=== PATIENT | female | born 1995 | race Hispanic/Latino ===

== ENCOUNTER 2018-10-27 10:34 | Emergency (ER) | payer OTHER ==
[2018-10-27] MEDS ORDERED: NA CHLORIDE 0.9% 1,000 ML ONE ×2 (11:13→12:30)
[2018-10-27] MEDS ORDERED: ACETAMINOPHEN 325 MG TABLET ONE (11:13)
[2018-10-27 11:45] LABS: Absolute Lymphocytes (CBC) 0.7 K/uL (0.7-4.9); Basophils % 0.1 % (0-1.3); Hematocrit 35.9 % (36.0-45.0); Lymphocytes % 5.4 % (15.3-44.8); MPV 7.1 fL (7.6-11.3); RBC Red Blood Cell Count 3.97 M/uL (3.86-4.86)
[2018-10-27 11:57] LABS: Urine Blood 2+ (NEG); Urine Glucose NEGATIVE (NEG); Urine Protein 1+ (NEG)
[2018-10-27 11:59] LABS: BUN Blood Urea Nitrogen 7 mg/dL (7-18); Bicarbonate 27 mmol/L (21-32); Glucose Level 103 mg/dL (74-106); Potassium 3.4 mmol/L (3.5-5.1); Sodium Level 136 mmol/L (136-145)
[2018-10-27 13:29] LABS: Blood Morphology Comment NOT SEEN (NOT SEEN); Platelet Estimate INCR; Urine White Blood Cell Casts OK
--- NOTE | 2018-10-27 13:30 | RAD REPORT ---
EXAM DESCRIPTION: CT - Chest For Pe Angio - 10/27/2018 12:48 pm CLINICAL HISTORY: Chest pain COMPARISON: None. TECHNIQUE: Dynamically enhanced axial 3 mm thick images of the chest were obtained during administra tion of <100> mL Isovue 370 IV contrast. Coronal and oblique reconstruction images were generated and reviewed. Exam utilizes a protocol for optimal evaluation of pulmonary arterial tree. Maximum intensity projections 3D imaging was utilized All CT scans are performed using dose optimization technique as appropriate and may include automated exposure control or mA/KV adjustment according to patient size. FINDINGS: A pulmonary embolus is not seen. A thoracic aortic aneurysm is not noted. A pleural effusion is not seen. A pericardial effusion is not seen. Moderate left and [id number]-ov-[id number] right the diffuse ground-glass opacities IMPRESSION: Negative for a pulmonary embolism. Moderate left and nvef-tg-cclbzzov right the diffuse ground-glass opacities could indicate infection , inflammation or pulmonary edema
--- NOTE | 2018-10-27 13:30 | RAD REPORT ---
EXAM DESCRIPTION: Huy Rashid And Lat (2 Views)10/27/2018 12:25 pm CLINICAL HISTORY: Cough COMPARISON: None FINDINGS: Moderate left and gqeh-[id number] the right alveolar opacities. . The heart is normal si ze IMPRESSION: Bilateral pulmonary opacities left greater than right may represent pneumonia, inflamma tion or pulmonary edema
[2018-10-27] MEDS ORDERED: CEFTRIAXONE/SWI 1gm 1 GM/10 ML SYR ONE (13:51)
[2018-10-27] MEDS ORDERED: AZITHROMYCIN 250 MG TAB ONE (14:50)
--- NOTE | 2018-10-27 14:57 | ER ---
Nurse's Notes [facility] Name: Briana Oconnell Age: 23 yrs Sex: Female : 1995 Arrival Date: 10/27/2018 Time: 10:37 Bed 17 Private MD: Diagnosis: Lobar pneumonia, unspecified organism Presentation: 10/27 10:43 Presenting complaint: Patient states: i have a had a cough and i feel like i cant get a tw2 full breath for like 2 days, i have some congestion as well. Transition of care: patient was not received from another setting of care. Onset of symptoms was October 27, 2018. Risk Assessment: Do you want to hurt yourself or someone else? Patient reports no desire to harm self or others. Initial Sepsis Screen: Does the patient meet any 2 criteria? HR > 90 bpm. Does the patient have a suspected source of infection? No. Patient's initial sepsis screen is negative. Care prior to arrival: None. 10:43 Method Of Arrival: Ambulatory tw2 10:43 Acuity: NICOLE 3 tw2 Triage Assessment: 10:45 Headache History: The patient has had previous headaches and this one is similar to tw2 previous episodes. General: Appears in no apparent distress. Behavior is calm, cooperative, appropriate for age. Pain: Pain currently is 7 out of 10 on a pain scale. Pain began 2-3 days ago. Also complains of decreased appetite. Neuro: Level of Consciousness is awake, alert, obeys commands. 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 - Social history:: Smoking status: . - Ebola Screening: : Patient denies travel to an Ebola-affected area in the 21 days before illness onset. Screenin:45 Abuse screen: Denies threats or abuse. Nutritional screening: On. Tuberculosis tw2 screening: No symptoms or risk factors identified. Fall Risk None identified. Assessment: 11:04 Reassessment: provider at bedside at this time. tw2 11:32 General: Appears in no apparent distress. slender, Behavior is calm, cooperative, tw2 appropriate for age. Pain: Complains of pain in painful cough. Neuro: Level of Consciousness is awake, alert, obeys commands, Oriented to person, place, time, situation. Cardiovascular: Reports shortness of breath, Heart tones S1 S2 Patient's skin is warm and dry. Respiratory: Reports shortness of breath cough that is Airway is patent Respiratory effort is even, unlabored, Respiratory pattern is regular, symmetrical, Breath sounds are clear bilaterally. GI: No signs and/or symptoms were reported involving the gastrointestinal system. Abdomen is flat, Bowel sounds present X 4 quads. : No signs and/or symptoms were reported regarding the genitourinary system. Urine is dark teresita urine noted. EENT: Reports nasal congestion nasal discharge. Derm: No signs and/or symptoms reported regarding the dermatologic system. Musculoskeletal: Range of motion: intact in all extremities. 11:57 Reassessment: Dr. Patel notified of elevated DDimer of 1032. ss 12:36 Reassessment: Patient appears in no apparent distress at this time. Patient and/or ca1 family updated on plan of care and expected duration. Pain level reassessed. Patient is alert, oriented x 3, equal unlabored respirations, skin warm/dry/pink. 13:14 Reassessment: Patient appears in no apparent distress at this time. Patient and/or ca1 family updated on plan of care and expected duration. Pain level reassessed. Patient is alert, oriented x 3, equal unlabored respirations, skin warm/dry/pink. 14:15 Reassessment: Patient appears in no apparent distress at this time. Patient and/or ca1 family updated on plan of care and expected duration. Pain level reassessed. Patient is alert, oriented x 3, equal unlabored respirations, skin warm/dry/pink. 15:13 Reassessment: Patient appears in no apparent distress at this time. Patient is alert, ca1 oriented x 3, equal unlabored respirations, skin warm/dry/pink. Vital Signs: 10:44 BP 112 / 73; Pulse 128; Resp 19; Temp 100.0(O); Pulse Ox 94% on R/A; Weight 58.97 kg tw2 (R); Height 5 ft. 0 in. (152.40 cm) (R); Pain 7/10; 11:34 BP 104 / 62; Pulse 116; Resp 17; Pulse Ox 95% on R/A; tw2 11:53 Temp 100.5(O); tw2 12:35 BP 103 / 58; Pulse 109; Resp 19 S; Pulse Ox 100% on R/A; ca1 13:14 BP 99 / 62; Pulse 102; Resp 17 S; Temp 98.8(O); Pulse Ox 97% on R/A; ca1 14:15 BP 114 / 78; Pulse 103; Resp 19 S; Pulse Ox 100% on R/A; ca1 15:13 BP 106 / 72; Pulse 97; Resp 20 S; Pulse Ox 96% on R/A; ca1 10:44 Body Mass Index 25.39 (58.97 kg, 152.40 cm) tw2 ED Course: 10:37 Patient arrived in ED. as 10:40 Bed in low position. Call light in reach. Pulse ox on. NIBP on. tw2 10:43 Emely Montesinos RN is Primary Nurse. tw2 10:44 Triage completed. tw2 10:44 Arm band placed on. tw2 10:57 Kayden Patel MD is Attending Physician. gs 11:16 Radiology exam delayed due to test not completed at this time. mh1 11:20 Inserted saline lock: 22 gauge in right antecubital area, using aseptic technique. tw2 Blood collected. 11:25 EKG done, by ED staff, reviewed by Kayden Patel MD. dh3 11:31 Urine collected: clean catch specimen, teresita colored, sediment noted. dh3 11:43 Patient moved to radiology via wheelchair. mh1 11:54 Report given to AILIN Hargrove. tw2 12:18 X-ray completed. Patient tolerated procedure well. Patient moved back from radiology. mh1 12:25 XRAY Chest Pa And Lat (2 Views) In Process Unspecified. EDMS 12:46 CT completed. Patient tolerated procedure well. Patient moved back from CT. mw3 12:49 CT Chest For PE Angio In Process Unspecified. EDMS 14:02 by me, sent to lab. First set of blood cultures drawn by me. Inserted saline lock: 22 dh3 gauge in right antecubital area, using aseptic technique. Blood collected. 14:20 Second set of blood cultures drawn by me. dh3 15:15 No provider procedures requiring assistance completed. IV discontinued, intact, ca1 bleeding controlled, No redness/swelling at site. Pressure dressing applied. Administered Medications: 11:17 Drug: Tylenol 650 mg Route: PO; tw2 13:00 Follow up: Response: No adverse reaction; Temperature is decreased ca1 11:20 Drug: NS 0.9% 1000 ml Route: IV; Rate: 1 bolus; Site: right antecubital; tw2 12:20 Follow up: Response: No adverse reaction; IV Status: Completed infusion ca1 12:35 Drug: NS 0.9% 1000 ml Route: IV; Rate: 125 ml/hr; Site: right antecubital; ca1 15:14 Follow up: Response: No adverse reaction; IV Status: Order to discontinue infusion ca1 14:11 Drug: Rocephin - (cefTRIAXone) 1 grams Route: IVPB; Infused Over: 30 mins; Site: right ca1 antecubital; 14:48 Follow up: Response: No adverse reaction; IV Status: Completed infusion ca1 14:53 Drug: Zithromax 500 mg Route: PO; ca1 15:14 Follow up: Response: No adverse reaction ca1 Outcome: 14:56 Discharge ordered by . 15:15 Discharged to home ambulatory, with significant other. ca1 15:15 Condition: stable 15:15 Discharge instructions given to patient, Instructed on discharge instructions, follow up and referral plans. medication usage, Demonstrated understanding of instructions, follow-up care, medications, Prescriptions given X 3. 15:16 Patient left the ED. ca1 Signatures: Dispatcher [employer] EDMS Alexa Taylor 1 Joanie Tanner Shelby, RN RN Emely Montesinos RN RN 2 Fina Ernst [facility] Kayden Patel MD MD gs Willis, Michelle 3 Beena Cornejo RN RN ca1
--- NOTE | 2018-10-27 14:57 | EDPHYS ---
Physician Documentation [facility] Name: Briana Oconnell Age: 23 yrs Sex: Female : 1995 Arrival Date: 10/27/2018 Time: 10:37 Bed 17 Private MD: ED Physician Kayden Patel HPI: 10/27 14:48 This 23 yrs old Female presents to ER via Ambulatory with complaints of gs Painful Cough, Fever. 14:50 The patient or guardian reports cough. Onset: The symptoms/episode began/occurred 3 gs day(s) ago, and became worse. Severity of symptoms: At their worst the symptoms were severe, in the emergency department the symptoms are unchanged. Modifying factors: the symptoms are aggravated by deep breath. Associated signs and symptoms: Pertinent positives: chest pain, with breathing. The patient has not experienced similar symptoms in the past. The patient has not recently seen a physician. 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 - Social history:: Smoking status: . - Ebola Screening: : Patient denies travel to an Ebola-affected area in the 21 days before illness onset. ROS: 14:50 All other systems are negative. gs Exam: 14:50 Head/Face: Normocephalic, atraumatic. Eyes: Pupils equal round and reactive to light, gs extra-ocular motions intact. Lids and lashes normal. Conjunctiva and sclera are non-icteric and not injected. Cornea within normal limits. Periorbital areas with no swelling, redness, or edema. ENT: Nares patent. No nasal discharge, no septal abnormalities noted. Tympanic membranes are normal and external auditory canals are clear. Oropharynx with no redness, swelling, or masses, exudates, or evidence of obstruction, uvula midline. Mucous membranes moist. Neck: Trachea midline, no thyromegaly or masses palpated, and no cervical lymphadenopathy. Supple, full range of motion without nuchal rigidity, or vertebral point tenderness. No Meningismus. Chest/axilla: Normal chest wall appearance and motion. Nontender with no deformity. No lesions are appreciated. 14:50 Abdomen/GI: Soft, non-tender, with normal bowel sounds. No distension or tympany. No guarding or rebound. No evidence of tenderness throughout. Back: No spinal tenderness. No costovertebral tenderness. Full range of motion. Skin: Warm, dry with normal turgor. Normal color with no rashes, no lesions, and no evidence of cellulitis. MS/ Extremity: Pulses equal, no cyanosis. Neurovascular intact. Full, normal range of motion. Neuro: Awake and alert, GCS 15, oriented to person, place, time, and situation. Cranial nerves II-XII grossly intact. Motor strength 5/5 in all extremities. Sensory grossly intact. Cerebellar exam normal. Normal gait. 14:50 Constitutional: The patient appears alert, awake. 14:50 Cardiovascular: Rate: tachycardic, Rhythm: regular, Pulses: no pulse deficits are appreciated, Heart sounds: normal. 14:50 ECG was reviewed by the Attending Physician. 14:50 Respiratory: the patient does not display signs of respiratory distress, Respirations: normal, Breath sounds: decreased breath sounds, that are moderate, are located in both bases. Vital Signs: 10:44 BP 112 / 73; Pulse 128; Resp 19; Temp 100.0(O); Pulse Ox 94% on R/A; Weight 58.97 kg tw2 (R); Height 5 ft. 0 in. (152.40 cm) (R); Pain 7/10; 11:34 BP 104 / 62; Pulse 116; Resp 17; Pulse Ox 95% on R/A; tw2 11:53 Temp 100.5(O); tw2 12:35 BP 103 / 58; Pulse 109; Resp 19 S; Pulse Ox 100% on R/A; ca1 13:14 BP 99 / 62; Pulse 102; Resp 17 S; Temp 98.8(O); Pulse Ox 97% on R/A; ca1 14:15 BP 114 / 78; Pulse 103; Resp 19 S; Pulse Ox 100% on R/A; ca1 15:13 BP 106 / 72; Pulse 97; Resp 20 S; Pulse Ox 96% on R/A; ca1 10:44 Body Mass Index 25.39 (58.97 kg, 152.40 cm) tw2 MDM: 11:06 Patient medically screened. gs 14:50 Differential Diagnosis: Bronchitis Pneumonia Other PE. Data reviewed: vital signs, gs nurses notes. Counseling: I had a detailed discussion with the patient and/or guardian regarding: the historical points, exam findings, and any diagnostic results supporting the discharge/admit diagnosis, lab results, radiology results. Response to treatment: the patient's symptoms have markedly improved after treatment. Special discussion: discussed admission with patient exam show mild stach, nl RR, sats good no dyspnea at rest or walking. given precautions when to return pt wants to go home. 10/27 11:07 Order name: CBC with Diff; Complete Time: 13:32 gs 10/27 11:07 Order name: Basic Metabolic Panel; Complete Time: 12:06 gs 10/27 11:07 Order name: D-Dimer; Complete Time: 12:06 10/27 11:31 Order name: Urine Dipstick--Ancillary (enter results); Complete Time: 12:06 eb 10/27 11:31 Order name: Urine --Ancillary (enter results); Complete Time: 12:06 eb 10/27 13:29 Order name: CBC Smear Scan; Complete Time: 13:32 EDMS 10/27 11:07 Order name: XRAY Chest Pa And Lat (2 Views); Complete Time: 13:32 gs 10/27 12:08 Order name: CT Chest For PE Angio; Complete Time: 13:32 10/27 13:34 Order name: Procalcitonin; Complete Time: 14:44 10/27 13:34 Order name: Lactate; Complete Time: 14:44 10/27 13:34 Order name: Blood Culture* 10/27 11:07 Order name: Urine Test (obtain specimen); Complete Time: 11:31 gs 10/27 11:07 Order name: Urine Dipstick-Ancillary (obtain specimen); Complete Time: 11:31 gs 10/27 11:07 Order name: EKG - Nurse/Tech; Complete Time: 11:31 gs 10/27 11:11 Order name: EKG; Complete Time: 11:12 tw2 10/27 11:32 Order name: IV Start; Complete Time: 11:32 tw2 EC:50 Rate is 123 beats/min. Rhythm is regular. ME interval is normal. QRS interval is gs prolonged. T waves are Normal. No ST changes noted. Clinical impression: Sinus tachycardia. Interpreted by me. Administered Medications: 11:17 Drug: Tylenol 650 mg Route: PO; tw2 13:00 Follow up: Response: No adverse reaction; Temperature is decreased ca1 11:20 Drug: NS 0.9% 1000 ml Route: IV; Rate: 1 bolus; Site: right antecubital; tw2 12:20 Follow up: Response: No adverse reaction; IV Status: Completed infusion ca1 12:35 Drug: NS 0.9% 1000 ml Route: IV; Rate: 125 ml/hr; Site: right antecubital; ca1 15:14 Follow up: Response: No adverse reaction; IV Status: Order to discontinue infusion ca1 14:11 Drug: Rocephin - (cefTRIAXone) 1 grams Route: IVPB; Infused Over: 30 mins; Site: right ca1 antecubital; 14:48 Follow up: Response: No adverse reaction; IV Status: Completed infusion ca1 14:53 Drug: Zithromax 500 mg Route: PO; ca1 15:14 Follow up: Response: No adverse reaction ca1 Disposition: 10/27/18 14:56 Discharged to Home. Impression: Lobar pneumonia, unspecified organism. - Condition is Stable. - Discharge Instructions: Community-Acquired Pneumonia, Adult. - Prescriptions for Ceftin 500 mg Oral Tablet - take 1 tablet by ORAL route every 12 hours for 7 days; 14 tablet. Zithromax Z- Crow 250 mg Oral Tablet - take 1 tablet by ORAL route as directed for 5 days Day 1 - take two (2) tablets one time. Day 2, 3, 4 , 5 take one (1) tablet once daily.; 6 tablet. Albuterol Sulfate 90 mcg/actuation - inhale 1-2 puff by INHALATION route every 4-6 hours; 1 Inhaler. - Medication Reconciliation Form, Thank You Letter, Antibiotic Education, Prescription Opioid Use, Work release form form. - Follow up: Private Physician; When: 2 - 3 days; Reason: Re-evaluation by your physician. Signatures: Dispatcher [employer] Emely Poe RN RN tw2 Kayden Patel MD MD gs Acob, AILIN Hargrove RN ca1 Corrections: (The following items were deleted from the chart) 15:16 14:56 10/27/2018 14:56 Discharged to Home. Impression: Lobar pneumonia, unspecified ca1 organism. Condition is Stable. Forms are Medication Reconciliation Form, Thank You Letter, Antibiotic Education, Prescription Opioid Use. Follow up: Private Physician; When: 2 - 3 days; Reason: Re-evaluation by your physician. gs
[2018-10-27 15:31] VITALS: TEMP 98.8
[2018-10-27 15:34] VITALS: BP 106/72; O2SAT 96
--- NOTE | 2018-10-27 16:56 | EKG ---
Test Date: 2018-10-27 Test Time: 11:22:43 Sliver Lap Tender: RUBY MEASUREMENT RESULTS: Intervals: Rate: 123 NC: 166 QRSD: 104 QT: 298 QTc: 426 Nuevo: P: 56 NC: 166 QRS: 66 T: 45 INTERPRETIVE STATEMENTS: Sinus tachycardia Possible Left atrial enlargement Incomplete right bundle branch block Borderline ECG No previous ECG available for comparison Electronically Signed On 10-27-18 16:55:50 CDT by Khari José
== END 2018-10-27 15:16 | disposition home or self-care (01) ==
LOC: ER 10:34
DX: J18.1 Lobar pneumonia, unspecified organism (principal)
CPT/HCPCS: 96365; 96361; 93005; 87040 ×2; 85025; 80048; 36415; 81025; 85379; 83605; 81003; 84145; 71275; 71046; 99285; Q9967; J0696; J7030 ×2

== ENCOUNTER 2019-12-29 11:02 | Emergency (ER) | payer OTHER ==
--- OUTSIDE RECORDS SUMMARY | 2019-12-29 11:05 | XMS REPORT | Continuity of Care Document ---
:1995 Author Organization [facility] t Address [facility] [place] [address] Care Team Providers Name Role Phone Elissa JASMINE Attending Clinician Lab, Fam Pob I Attending Clinician Unavailable Problems This patient has no known problems. Allergies, Adverse Reactions, Alerts This patient has no known allergies or adverse reactions. Medications This patient has no known medications. Procedures This patient has no known procedures. Encounters Start End Encounter Admission Attending Care Care Encounter Source Date/Time Date/Time Type Type Clinicians Facility Department ID 2019-09-26 2019-09-26 Telephone Elissa [facility] [id number] 00:00:00 00:00:00 [facility] [id number] [place] [id number] [facility] [phone] [address] 2019-09-25 2019-09-25 Laboratory Lab, Adc [facility] [id number] 13:01:09 13:21:09 Only Fam Pob I [facility] [id number] [place] [id number] [facility] [phone] [address]al [phone] Results This patient has no known results.
[2019-12-29 13:34] LABS: Absolute Lymphocytes (CBC) 1.4 K/uL (0.7-4.9); Basophils % 0.5 % (0-1.3); Hematocrit 37.3 % (36.0-45.0); Lymphocytes % 15.6 % (15.3-44.8); MPV 8.1 fL (7.6-11.3); RBC Red Blood Cell Count 4.04 M/uL (3.86-4.86)
[2019-12-29] MEDS ORDERED: MAGNES/ALUMIN/SIMET 30ML UCUP ONE (13:43)
[2019-12-29] MEDS ORDERED: LIDOCAINE VISCOUS 2% SOLN 15 ML UDC ONE (13:43)
[2019-12-29] MEDS ORDERED: NA CHLORIDE 0.9% 1,000 ML ONE (13:43)
[2019-12-29] MEDS ORDERED: PANTOPRAZOLE 40 MG INJ ONE (13:43)
[2019-12-29] MEDS ORDERED: ONDANSETRON 4 MG/2 ML VIAL ONE (13:43)
[2019-12-29 13:50] LABS: Albumin 4.1 g/dL (3.4-5.0); Bilirubin Direct 0.2 mg/dL (0-0.2); Potassium 3.4 mmol/L (3.5-5.1); Protein, Total 7.6 g/dL (6.4-8.2)
--- NOTE | 2019-12-29 14:06 | RAD REPORT ---
EXAM DESCRIPTION: US - Abdomen Exam Limited - 12/29/2019 1:05 pm CLINICAL HISTORY: Abd pain;Epigastric pain COMPARISON: CT ABD PELVIS W CONTRAST dated 05/02/2012 FINDINGS: Several small sub centimeter mobile gallstones are seen in the lumen of the gallbladder. N o wall thickening or pericholecystic fluid. No common duct stone or biliary tree dilatation identified. IMPRESSION: Several small sub centimeter mobile gallstones seen. No other gallbladder or biliary heide e finding.
[2019-12-29] MEDS ORDERED: DICYCLOMINE HCL 20 MG/2 ML AMP IM ONE (14:33)
--- NOTE | 2019-12-29 15:00 | ER ---
Nurse's Notes [facility] Name: Briana Oconnell Age: 24 yrs Sex: Female : 1995 Arrival Date: 12/29/2019 Time: 11:06 Bed 26 Private MD: Hailey Harvey H Diagnosis: Cholelithiasis;Epigastric pain Presentation: 12/28 11:07 Chief complaint: Patient states: epigastric pain that radiates to the back, n/v x [address] sv [address] Cross in the past and has H.pylori but she has an US for her gallbladder next week but the pain has increased. Coronavirus screen: Client denies travel out of the [place] in the last 14 days. At this time, the client does not indicate any symptoms associated with coronavirus-19. Ebola Screen: No symptoms or risks identified at this time. Risk Assessment: Do you want to hurt yourself or someone else? Patient reports no desire to harm self or others. Onset of symptoms was December 26, 2019. 11:07 Method Of Arrival: Ambulatory sv 11:07 Acuity: NICOLE 3 sv 11:09 Initial Sepsis Screen: Does the patient meet any 2 criteria? No. Patient's initial sv sepsis screen is negative. Does the patient have a suspected source of infection? No. Patient's initial sepsis screen is negative. Triage Assessment: 11:07 General: Appears in no apparent distress. uncomfortable, Behavior is calm, cooperative, sv appropriate for age. Pain: Complains of pain in epigastric area Pain radiates to back. Neuro: Level of Consciousness is awake, alert, obeys commands, Gait is steady. Respiratory: Respiratory effort is even, unlabored, Respiratory pattern is regular, symmetrical. GI: Reports upper abdominal pain, epigastric pain, vomiting. Historical: - Allergies: 11:09 No Known Allergies; sv - PMHx: 11:09 H. pylori; sv - PSHx: 11:09 ; sv - Immunization history:: Flu vaccine is not up to date. - Social history:: Smoking status: Patient denies any tobacco usage or history of. Screenin:33 Abuse screen: Denies threats or abuse. Denies injuries from another. Nutritional hb screening: No deficits noted. Tuberculosis screening: No symptoms or risk factors identified. Fall Risk None identified. Assessment: 13:30 General: Appears in no apparent distress. Behavior is calm, cooperative. Pain: Pain hb currently is 6 out of 10 on a pain scale. Neuro: Level of Consciousness is awake, alert, obeys commands, Oriented to person, place, time, situation. Cardiovascular: Capillary refill < 3 seconds Patient's skin is warm and dry. Respiratory: Airway is patent Respiratory effort is even, unlabored, Respiratory pattern is regular, symmetrical. GI: Reports upper abdominal pain. : No signs and/or symptoms were reported regarding the genitourinary system. EENT: No signs and/or symptoms were reported regarding the EENT system. Derm: Skin is pink, warm \T\ dry. Musculoskeletal: No signs and/or symptoms reported regarding the musculoskeletal system. 14:26 Reassessment: Patient appears in no apparent distress at this time. Patient and/or hb family updated on plan of care and expected duration. Pain level reassessed. Patient is alert, oriented x 3, equal unlabored respirations, skin warm/dry/pink. 15:16 Reassessment: Patient appears in no apparent distress at this time. Patient and/or hb family updated on plan of care and expected duration. Pain level reassessed. Patient is alert, oriented x 3, equal unlabored respirations, skin warm/dry/pink. Patient states feeling better. Patient states symptoms have improved. Vital Signs: 11:09 BP 118 / 72; Pulse 83; Resp 16; Temp 98.3; Pulse Ox 99% ; Weight 63.5 kg; Height 5 ft. sv 0 in. (152.40 cm); Pain 6/10; 15:00 BP 122 / 74; Pulse 80; Resp 16; Pulse Ox 99% on R/A; hb 11:09 Body Mass Index 27.34 (63.50 kg, 152.40 cm) sv ED Course: 11:06 Patient arrived in ED. mr 11:06 Hailey Harvey DO is Private Physician. mr 11:07 Arm band placed on. sv 11:08 Triage completed. sv 13:08 Molly Nunez, AILIN is Primary Nurse. hb 13:11 Bernardo Chavira PA is PHCP. cp 13:11 Stanley Naidu MD is Attending Physician. cp 13:25 Initial lab(s) drawn, by me, sent to lab. Inserted saline lock: 20 gauge in right jp3 antecubital area, using aseptic technique. Blood collected. Patient maintains SpO2 saturation greater than 95% on room air. 13:31 Urine collected: clean catch specimen, clear, teresita colored. jp3 13:33 Patient has correct armband on for positive identification. Placed in gown. Bed in low hb position. Call light in reach. 14:54 Urine --Ancillary (enter results) Sent. ss 14:54 Urine Dipstick--Ancillary (enter results) Sent. ss 14:54 Basic Metabolic Panel Sent. ss 14:54 CBC with Diff Sent. ss 14:54 Hepatic Function Sent. ss 14:54 Lipase Sent. ss 14:54 US Abdomen Limited Sent. ss 14:59 Marcus Sanford MD is Referral Physician. cp 15:17 No provider procedures requiring assistance completed. IV discontinued, intact, hb bleeding controlled, No redness/swelling at site. Administered Medications: 13:38 Drug: ProTONIX 40 mg Route: IVP; Site: right antecubital; hb 14:10 Follow up: Response: No adverse reaction hb 13:38 Drug: GI Cocktail without - (Maalox Suspension 30 ml, Lidocaine Liquid 2 % 15 hb ml) Route: PO; 14:10 Follow up: Response: No adverse reaction hb 13:38 Drug: NS 0.9% 1000 ml Route: IV; Rate: 1 bolus; Site: right antecubital; hb 14:32 Follow up: Response: No adverse reaction; IV Status: Completed infusion; IV Intake: hb 1000ml 13:39 Drug: Zofran (Ondansetron) 4 mg Route: IVP; Site: right antecubital; hb 14:10 Follow up: Response: No adverse reaction hb 15:12 Drug: Potassium Effervescent Tablet 25 mEq Route: PO; hb 15:15 Follow up: Response: Medication administered at discharge. hb Point of Care Testing: Urine : 13:41 hCG Reading: Negative; Control Reading: Positive; jp3 Intake: 14:32 IV: 1000ml; Total: 1000ml. hb Outcome: 14:59 Discharge ordered by . cp 15:17 Discharged to home ambulatory, with family. hb 15:17 Condition: stable 15:17 Discharge instructions given to patient, Instructed on discharge instructions, follow up and referral plans. medication usage, Demonstrated understanding of instructions, follow-up care, medications, Prescriptions given X 3. 15:18 Patient left the ED. Signatures: Olive Leblanc RN RN Lupe Burnette mr Kathie Summers RN RN ss Page, Corey, PA PA cp Baxter, Heather, RN RN Truman Zuniga jp3 Corrections: (The following items were deleted from the chart) 11:11 11:09 Pulse 83bpm; Resp 16bpm; Pulse Ox 99%; Temp 98.3F; 63.5 kg; Height 5 ft. 0 in.; sv BMI: 27.3; Pain 6/10; sv
--- NOTE | 2019-12-29 15:01 | EDPHYS ---
Physician Documentation [facility] Name: Briana Oconnell Age: 24 yrs Sex: Female : 1995 Arrival Date: 12/29/2019 Time: 11:06 Bed 26 Private MD: Hailey Harvey H ED Physician Stanley Naidu HPI: 12/28 13:30 This 24 yrs old Female presents to ER via Ambulatory with complaints of cp Abdominal Pain, Vomiting. 13:30 The patient presents with abdominal pain in the epigastric area. Onset: The cp symptoms/episode began/occurred 8 year(s) ago, and became worse 3 day(s) ago. The symptoms radiate to back. Associated signs and symptoms: Pertinent positives: nausea and vomiting, intermittent diarrhea and constipation. 13:30 Patient reports being seen by DR Cross in the past and diagnosed with H. Pylori and cp gastric ulcer. Patient reports having scheduled US of gallbladder for next week, but due to pain, came to be evaluated today. Historical: - Allergies: 11:09 No Known Allergies; sv - PMHx: 11:09 H. pylori; sv - PSHx: 11:09 ; sv - Immunization history:: Flu vaccine is not up to date. - Social history:: Smoking status: Patient denies any tobacco usage or history of. ROS: 13:33 Eyes: Negative for injury, pain, redness, and discharge. cp 13:33 Constitutional: Negative for body aches, chills, fever, poor PO intake. 13:33 ENT: Negative for ear pain, sore throat, difficulty swallowing, difficulty handling secretions. 13:33 Cardiovascular: Negative for chest pain, palpitations. 13:33 Respiratory: Negative for cough, shortness of breath, wheezing. 13:33 Abdomen/GI: Positive for abdominal pain, nausea and vomiting, diarrhea, constipation, Negative for dysphagia, black/tarry stool, rectal bleeding. 13:33 Back: Positive for radiated pain. 13:33 : Negative for urinary symptoms, vaginal bleeding, vaginal discharge. 13:33 Neuro: Negative for altered mental status, headache, weakness. 13:33 All other systems are negative. Exam: 13:40 Constitutional: The patient appears in no acute distress, alert, awake, non-toxic, well cp developed, well nourished, uncomfortable. 13:40 Head/Face: Normocephalic, atraumatic. cp 13:40 Eyes: Periorbital structures: appear normal, Conjunctiva: normal, no exudate, no injection, Sclera: no appreciated abnormality, Lids and lashes: appear normal, bilaterally. 13:40 ENT: External ear(s): are unremarkable, Nose: is normal, Mouth: Lips: moist, Oral mucosa: moist, Posterior pharynx: Airway: no evidence of obstruction, patent. 13:40 Chest/axilla: Inspection: normal, Palpation: is normal, no crepitus, no tenderness. 13:40 Cardiovascular: Rate: normal, Rhythm: regular. 13:40 Respiratory: the patient does not display signs of respiratory distress, Respirations: normal, no use of accessory muscles, no retractions, labored breathing, is not present, Breath sounds: are clear throughout, no decreased breath sounds. 13:40 Abdomen/GI: Inspection: abdomen appears normal, Bowel sounds: active, all quadrants, Palpation: soft, in all quadrants, moderate abdominal tenderness, in the epigastric area, rebound tenderness, is not appreciated, voluntary guarding, is not appreciated, involuntary guarding, is not appreciated. 13:40 Back: pain, that is mild, of the right mid back and right low back, ROM is normal. Vital Signs: 11:09 BP 118 / 72; Pulse 83; Resp 16; Temp 98.3; Pulse Ox 99% ; Weight 63.5 kg; Height 5 ft. sv 0 in. (152.40 cm); Pain 6/10; 15:00 BP 122 / 74; Pulse 80; Resp 16; Pulse Ox 99% on R/A; hb 11:09 Body Mass Index 27.34 (63.50 kg, 152.40 cm) sv MDM: 13:17 Patient medically screened. cp 13:45 Differential diagnosis: appendicitis, bowel obstruction, cholecystitis, Cholelithiasis, cp gastritis, gastroesophageal reflux disease, non-specific abd pain, pancreatitis, Peptic Ulcer Disease, Perf. Duodenal Ulcer, Perf. Gastric Ulcer, Pyelonephritis, Ureterolithiasis, urinary tract infection. 14:58 Data reviewed: vital signs, nurses notes, lab test result(s), radiologic studies, cp ultrasound. 14:58 Counseling: I had a detailed discussion with the patient and/or guardian regarding: the cp historical points, exam findings, and any diagnostic results supporting the discharge/admit diagnosis, lab results, radiology results, the need for outpatient follow up, a general surgeon, to return to the emergency department if symptoms worsen or persist or if there are any questions or concerns that arise at home. Response to treatment: the patient's symptoms have markedly improved after treatment, Nausea and pain markedly improved. Vomiting resolved and patient tolerating po fluids. Will discharge to home with recommendation to f/u with general surgery. Special discussion: Based on the patient's Hx, exam, and Dx evaluation, there is no indication for emergent surgery or inpatient Tx. It is understood by the patient/guardian that if the Sx's persist or worsen they need to return immediately for re-evaluation. 12/28 13:16 Order name: Basic Metabolic Panel cp 12/28 13:16 Order name: CBC with Diff cp 12/28 13:16 Order name: Hepatic Function cp 12/28 13:16 Order name: Lipase cp 12/28 13:41 Order name: Urine Dipstick--Ancillary (enter results) bd 12/28 13:41 Order name: Urine --Ancillary (enter results) bd 12/28 12:23 Order name: US Abdomen Limited sv 12/28 13:42 Order name: CBC with Automated Diff; Complete Time: 14:19 EDMS 12/28 14:20 Interpretation: Normal except: EMILY% 77.3. cp 12/28 13:50 Order name: Basic Metabolic Panel; Complete Time: 14:19 EDMS 12/28 14:20 Interpretation: Normal except: K 3.4; GFR 77. cp 12/28 13:50 Order name: Liver (Hepatic) Function; Complete Time: 14:19 EDMS 12/28 14:21 Interpretation: Normal except: AST 8; ALK 40. cp 12/28 13:50 Order name: Lipase; Complete Time: 14:19 EDMS 12/28 14:21 Interpretation: LIP 50; Reviewed. cp 12/28 14:07 Order name: US; Complete Time: 14:19 EDMS 12/28 14:22 Interpretation: Report reviewed. cp 12/28 15:11 Order name: Urine --Ancillary EDMS 12/28 15:11 Order name: Urine Dipstick-Ancillary EDMS 12/28 13:16 Order name: IV Saline Lock; Complete Time: 13:31 cp 12/28 13:16 Order name: Labs collected and sent; Complete Time: 13:31 cp 12/28 13:16 Order name: Urine Dipstick-Ancillary (obtain specimen); Complete Time: 13:39 cp 12/28 13:16 Order name: Urine Test (obtain specimen); Complete Time: 13:39 cp Administered Medications: 13:38 Drug: ProTONIX 40 mg Route: IVP; Site: right antecubital; hb 14:10 Follow up: Response: No adverse reaction hb 13:38 Drug: GI Cocktail without - (Maalox Suspension 30 ml, Lidocaine Liquid 2 % 15 hb ml) Route: PO; 14:10 Follow up: Response: No adverse reaction hb 13:38 Drug: NS 0.9% 1000 ml Route: IV; Rate: 1 bolus; Site: right antecubital; hb 14:32 Follow up: Response: No adverse reaction; IV Status: Completed infusion; IV Intake: hb 1000ml 13:39 Drug: Zofran (Ondansetron) 4 mg Route: IVP; Site: right antecubital; hb 14:10 Follow up: Response: No adverse reaction hb 15:12 Drug: Potassium Effervescent Tablet 25 mEq Route: PO; hb 15:15 Follow up: Response: Medication administered at discharge. hb Point of Care Testing: Urine : 13:41 hCG Reading: Negative; Control Reading: Positive; jp3 Disposition: 12/29 07:42 Co-signature as Attending Physician, Stanley Naidu MD I agree with the assessment and kdr plan of care. Disposition: 12/29/19 14:59 Discharged to Home. Impression: Cholelithiasis, Epigastric pain. - Condition is Stable. - Discharge Instructions: Abdominal Pain, Adult, Cholelithiasis. - Prescriptions for Zofran 4 mg Oral Tablet - take 1 tablet by ORAL route every 12 hours As needed; 20 tablet. Carafate 1 gram Oral Tablet - take 2 tablets by ORAL route every 12 hours take on an empty stomach, beginning on waking and last dose at bedtime. dissolve tablet in 8 oz warm water prior to drinking; 100 tablet. Bentyl 20 mg Oral Tablet - take 1 tablet by ORAL route every 6 hours As needed; 30 tablet. - Medication Reconciliation Form, Thank You Letter, Antibiotic Education, Prescription Opioid Use, Work release form form. - Follow up: Marcus Sanford MD; When: 1 - 2 days; Reason: gallstones. - Problem is an ongoing problem. - Symptoms have improved. Signatures: Dispatcher [employer] Olive Baumann, RN RN Stanley Naidu MD MD [facility] Bernardo Chavira PA PA Molly Nunez RN RN Corrections: (The following items were deleted from the chart) 12/28 13:33 13:30 The patient presents with abdominal pain in the epigastric area, cp cp 13:33 13:30 Onset: The symptoms/episode began/occurred 8 year(s) ago, cp cp 15:18 14:59 12/29/2019 14:59 Discharged to Home. Impression: Cholelithiasis; Epigastric pain. hb Condition is Stable. Forms are Medication Reconciliation Form, Thank You Letter, Antibiotic Education, Prescription Opioid Use. Follow up: Marcus Sanford; When: 1 - 2 days; Reason: gallstones. Problem is an ongoing problem. Symptoms have improved. cp
[2019-12-29 15:11] LABS: Urine Blood 2+ (NEG); Urine Glucose NEGATIVE (NEG); Urine Protein NEGATIVE (NEG); Urine pH 6.5 (5.0-7.0)
[2019-12-29] MEDS ORDERED: POTASSIUM 25 MEQ EFFERV TAB ONE (15:18)
[2019-12-29 16:33] VITALS: TEMP 98.3; O2SAT 99
[2019-12-29 16:50] VITALS: BP 122/74
== END 2019-12-29 15:18 | disposition home or self-care (01) ==
LOC: ER 11:02
DX: K80.20 Calculus of gallbladder without cholecystitis without obstruction (principal)
CPT/HCPCS: 96361; 85025; 80048; 36415; 81025; 80076; 81003; 83690; 76705; 96375; 96374; 99284; J0500; C9113; J7030; J2405

== ENCOUNTER 2020-01-14 07:39 | Day surgery (SDC) | payer OTHER ==
[2020-01-09 13:36] LABS: Absolute Lymphocytes (CBC) 1.6 K/uL (0.7-4.9); Basophils % 0.4 % (0-1.3); Hematocrit 36.5 % (36.0-45.0); Lymphocytes % 17.2 % (15.3-44.8); MPV 7.7 fL (7.6-11.3)
[2020-01-09 13:53] LABS: ALT/SGPT 17 U/L (12-78); AST/SGOT 6 U/L (15-37); Albumin 3.9 g/dL (3.4-5.0); Alkaline Phosphatase 38 U/L (45-117); Amylase 47 U/L (25-115); BUN Blood Urea Nitrogen 8 mg/dL (7-18); Bicarbonate 32 mmol/L (21-32); Bilirubin Direct 0.2 mg/dL (0-0.2); Bilirubin Total 0.7 mg/dL (0.2-1.0); Glucose Level 95 mg/dL (74-106); Lipase 59 U/L (73-393); Potassium 3.7 mmol/L (3.5-5.1); Sodium Level 143 mmol/L (136-145)
--- OUTSIDE RECORDS SUMMARY | 2020-01-14 06:35 | XMS REPORT | Continuity of Care Document ---
:[address] [facility] t Address [facility] [place] [address] Care Team Providers Name Role Phone Elissa [...] Facility Department ID 2019-09-26 2019-09-26 Telephone Elissa [facility] [id number] 00:00:00 00:00:00 [facility] [id number] [place] [id number] Professio [phone] nal 0[address] 2019-09-25 2019-09-25 Laboratory Lab, [facility] [id number] 13:01:09 13:21:09 Only Fam [facility] [id number] [place] [id number] Professio [phone] nal 0[address] One Results This patient has no known results.
--- OUTSIDE RECORDS SUMMARY | 2020-01-14 07:42 | XMS REPORT | Continuity of Care Document ---
:1995 Author Organization [facility] t Address [facility] [place] [address] Care Team Providers Name Role Phone Elissa [...] Facility Department ID 2019-09-26 2019-09-26 Telephone Elissa [facility] [id number] 00:00:00 00:00:00 [facility] [id number] [place] [id number] Professio [phone] nal 0[address] 2019-09-25 2019-09-25 Laboratory Lab, Adc [facility] [id number] 13:01:09 13:21:09 Only [facility]am [facility] [id number] [place] [id number] Professio [phone] nal 044 [address] One Results This patient has no known results.
[2020-01-14] MEDS ORDERED: Ringers Lactate 1,000 ML IV ONE (08:03)
[2020-01-14] MEDS ORDERED: CEFOXITIN/SWI 1gm 1 GM/10 ML SYR ONE (08:03)
[2020-01-14] MEDS ORDERED: MIDAZOLAM HCL 2 MG/2 ML INJ ONE (08:30)
[2020-01-14] MEDS ORDERED: propofoL 200 MG/20 ML VIAL IV ONE (08:30)
[2020-01-14] MEDS ORDERED: FENTANYL CITR 100 MCG/2 ML ONE ×2 (08:30→08:32)
[2020-01-14] MEDS ORDERED: ROCURONIUM 50 MG/5 ML VIAL IV ONE (08:31)
[2020-01-14] MEDS ORDERED: ONDANSETRON 4 MG/2 ML VIAL ONE ×2 (08:31→10:27)
[2020-01-14] MEDS ORDERED: dexAMETHasone 4 MG/ML VIAL ONE (08:31)
[2020-01-14] MEDS ORDERED: LIDOCAINE 2% MPF 5 ML VIAL ONE (08:31)
--- NOTE | 2020-01-14 09:16 | P.BOP ---
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
[2020-01-14] MEDS ORDERED: GLYCOPYRROLATE 0.2 MG/ML SYR ONE (09:21)
[2020-01-14] MEDS ORDERED: NEOSTIGMINE 1 MG/ML -5 ML ONE (09:22)
[2020-01-14] MEDS ORDERED: KETOROLAC 30 MG/ML INJ ONE (09:22)
[2020-01-14 09:37] VITALS: O2SAT 100
[2020-01-14 09:47] VITALS: TEMP 98
[2020-01-14 10:09] VITALS: BP 129/36
--- NOTE | 2020-01-14 10:13 | OP ---
Date of Procedure: 01/14/2020 Surgeon: Jay Tanner MD Preoperative Diagnosis: Acute cholecystitis, symptomatic cholelithiasis. Postoperative Diagnosis: Acute cholecystitis, symptomatic cholelithiasis. Procedure: Laparoscopic cholecystectomy. Anesthesia: General plus local. Indication: This is a case of a 24-year-old patient who comes to us with recurrent epigastric right upper quadrant pain, multiple attacks. The patient was waiting to have her babies to have her surger y done. She has been trying to modify the diet, but recently is not even helping, so she decided to go for laparoscopic, possible open cholecystectomy with benefits, alternatives, and risks including, but not limited to infection, bleeding, damage to adjacent structures, anesthesia complication, mary lou docholithiasis, bile leak, pancreatitis, OR, and . She also understands this may not relieve he r symptoms. She might need more than one surgical intervention. She understood, signed a consent. Procedure In Detail: The patient was brought to the operating room, placed in supine position. Anes thesia was done without complication. Abdominal area was prepped and draped in a sterile fashion. M arcaine 0.5% was injected for local anesthetic followed by sharp incision of the skin in the infraumb ilical region. Incision was carried down to fascia, which was opened under direct vision. Peritoneu m was encountered, opened under direct vision. Vicryl #1 was placed inside the fascia. Linda troca r was carefully introduced. No bleeding was obtained. I placed 3 more trocars 5 mm each one of them , one in the epigastric area, 2 in the right upper quadrant under direct visualization. A grasper wa s placed in the fundus of the gallbladder. Another grasper in the infundibulum retracting the gallbl adder in the inferolateral fashion exposing the triangle of Calot obtaining critical view. Cystic du ct and cystic artery were clearly isolated free circumferentially and a connection between those and the gallbladder were clearly identified. I proceeded to ligate those by using at least 3 clips proxi mal, 1 clip distal, ligation in middle. Same was done with the cystic artery. A branch from the cys tic artery was also ligated. Hepatic arteries and common bile duct were protected at all times. Gal lbladder was removed from liver using Bovie cauterizer and removed from abdominal cavity using EndoCa tch through the umbilical incision. Area was inspected once again after irrigation and suction. Cli ps were intact. No bile leak. No bleeding. At that moment, I proceeded to remove the trocars under direct vision, deflated pneumoperitoneum, closed the fascia with #1 Vicryl. Irrigated subcutaneous tissue, closed with 3-0 chromic and skin in a subcuticular fashion. Sponge count, instrument counts were correct. Patient tolerated the procedure well. Patient was sent to Recovery in stable conditio nKodi RIGGS/KIRT Voice ID: [id number] Report ID: [id number]
--- NOTE | 2020-01-14 10:19 | DS ---
Diagnosis: Acute cholecystitis, symptomatic cholelithiasis. Disposition: Home. Activity: As tolerated. No heavy lifting. Plan: Follow up in my office in 1 week. Call for appointment at [phone]. Keep area dry for 48 hour s, then may shower. Keep Steri-Strips intact. Medications: See orders. KEELY/KIRT Voice ID: [id number] Report ID: [id number]
[2020-01-14] MEDS ORDERED: CODEINE 30MG/APAP 300MG TAB ONE (10:27)
== END 2020-01-14 10:52 | disposition home or self-care (01) ==
LOC: OR 07:39
PROVIDERS: ATTEND Surgery
PROC: 0FT44ZZ Resection of Gallbladder, Percutaneous Endoscopic Approach (ICD-10-PCS; principal; 2020-01-14 09:30)
DX: K80.12 Calculus of gallbladder with acute and chronic cholecystitis without obstruction (principal); Z20.828 Contact with and (suspected) exposure to other viral communicable diseases
CPT/HCPCS: 85025; 80048; 36415; 82150; 81025; 80076; 88304; 83690; 47562; U0002; J2704; J1100; J2250; J3010; J2710; J7120; J2405 ×2

== ENCOUNTER 2020-06-12 06:46 | Emergency (ER) | payer OTHER ==
--- OUTSIDE RECORDS SUMMARY | 2020-06-12 06:49 | XMS REPORT | Continuity of Care Document ---
:1995 Author Organization [facility] t Address [address] [place] [address] Care Team Providers Name Role Phone Elissa [...] Facility Department ID 2019-09-26 2019-09-26 Telephone Elissa [facility] [id number] 00:00:00 00:00:00 [facility] [id number] [place] [id number] Profess[facility] [phone] nal [phone] [address] One 2019-09-25 2019-09-25 Laboratory Lab, [facility] [id number] 13:01:09 13:21:09 Only [facility]am [facility] [id number] [place] [id number] Professio [phone] nal 044 [address] One Results This patient has no known results.
[2020-06-12 07:08] LABS: Urine Blood 2+ (Negative); Urine Glucose Negative (Negative); Urine Protein 1+ (Negative); Urine Specific Gravity >=1.030 (1.005-1.030)
[2020-06-12] MEDS ORDERED: METOCLOPRAMIDE 10 MG/2mL INJ ONE (07:46)
[2020-06-12] MEDS ORDERED: MORPHINE 2 MG/ML SYR ONE (07:46)
[2020-06-12] MEDS ORDERED: PANTOPRAZOLE 40 MG INJ ONE (07:46)
[2020-06-12] MEDS ORDERED: NA CHLORIDE 0.9% 1,000 ML ONE (07:46)
[2020-06-12 07:48] LABS: Absolute Lymphocytes (CBC) 2.2 K/uL (0.7-4.9); Basophils % 0.8 % (0-1.3); Hematocrit 38.8 % (36.0-45.0); Lymphocytes % 32.6 % (15.3-44.8); MPV 8.4 fL (7.6-11.3); RBC Red Blood Cell Count 4.19 M/uL (3.86-4.86)
[2020-06-12 08:11] LABS: Bicarbonate 26 mmol/L (21-32); Sodium Level 140 mmol/L (136-145)
[2020-06-12 08:12] LABS: ALT/SGPT 18 U/L (12-78); AST/SGOT 6 U/L (15-37); Albumin 4.6 g/dL (3.4-5.0); Alkaline Phosphatase 38 U/L (45-117); BUN Blood Urea Nitrogen 16 mg/dL (7-18); Bilirubin Direct 0.4 mg/dL (0-0.2); Glucose Level 116 mg/dL (74-106); Lipase 87 U/L (73-393); Potassium 3.1 mmol/L (3.5-5.1); Protein, Total 7.7 g/dL (6.4-8.2)
--- NOTE | 2020-06-12 09:58 | RAD REPORT ---
EXAM DESCRIPTION: CT - Abdomen Pelvis W Contrast - 06/12/2020 9:40 am CLINICAL HISTORY: Abdominal pain. COMPARISON: 2012 TECHNIQUE: Computed axial tomography of the abdomen and pelvis was obtained. 100 cc Isovue-300 is ad ministered intravenously. Oral contrast was given. All CT scans are performed using dose optimization technique as appropriate and may include automated exposure control or mA/KV adjustment according to patient size. FINDINGS: The liver, spleen, pancreas, adrenals and k left kidney appear unremarkable. 3.5 millimeter left renal calculus. No hydronephrosis. Cholecystectomy. IUD in place. No adnexal mass The appendix is normal caliber. There is no evidence of diverticulitis IMPRESSION: 3.5 millimeter nonobstructing left renal calculus
--- NOTE | 2020-06-12 10:31 | EDPHYS ---
Physician Documentation [facility] Name: Briana Oconnell Age: 24 yrs Sex: Female : 1995 Arrival Date: 06/12/2020 Time: 06:49 Bed 6 Private MD: Hailey Harvey H ED Physician Dean Birmingham HPI: 06/12 06:58 This 24 yrs old Female presents to ER via Unassigned with complaints of baudilio Abdominal Pain. 06:58 The patient presents with abdominal pain in the epigastric area, in the upper abdomen. baudilio Onset: The symptoms/episode began/occurred 2 day(s) ago. The symptoms do not radiate. Associated signs and symptoms: Pertinent positives: nausea and vomiting. The symptoms are described as constant, crampy. Modifying factors: The symptoms are alleviated by nothing, the symptoms are aggravated by food, vomiting, walking. The patient has experienced similar episodes in the past, multiple times. Historical: - Allergies: 07:41 No Known Allergies; jl7 - PMHx: 07:41 h. pylori; jl7 - PSHx: 07:41 Cholecystectomy; ; jl7 - Immunization history:: Adult Immunizations unknown. - Social history:: Smoking status: unknown. - Family history:: not pertinent. ROS: 06:58 Constitutional: Negative for fever, chills, and weight loss, Eyes: Negative for injury, baudilio pain, redness, and discharge, ENT: Negative for injury, pain, and discharge, Neck: Negative for injury, pain, and swelling, Cardiovascular: Negative for chest pain, palpitations, and edema, Respiratory: Negative for shortness of breath, cough, wheezing, and pleuritic chest pain, Back: Negative for injury and pain, : Negative for injury, bleeding, discharge, and swelling, MS/Extremity: Negative for injury and deformity, Skin: Negative for injury, rash, and discoloration, Neuro: Negative for headache, weakness, numbness, tingling, and seizure, Psych: Negative for depression, anxiety, suicide ideation, homicidal ideation, and hallucinations, Allergy/Immunology: Negative for hives, rash, and allergies, Endocrine: Negative for neck swelling, polydipsia, polyuria, polyphagia, and marked weight changes, Hematologic/Lymphatic: Negative for swollen nodes, abnormal bleeding, and unusual bruising. 06:58 Abdomen/GI: Positive for abdominal pain, nausea, of the epigastric area, right upper quadrant and left upper quadrant. Exam: 06:58 Constitutional: This is a well developed, well nourished patient who is awake, alert, baudilio and in no acute distress. Head/Face: Normocephalic, atraumatic. Eyes: Pupils equal round and reactive to light, extra-ocular motions intact. Lids and lashes normal. Conjunctiva and sclera are non-icteric and not injected. Cornea within normal limits. Periorbital areas with no swelling, redness, or edema. ENT: Nares patent. No nasal discharge, no septal abnormalities noted. Tympanic membranes are normal and external auditory canals are clear. Oropharynx with no redness, swelling, or masses, exudates, or evidence of obstruction, uvula midline. Mucous membranes moist. Neck: Trachea midline, no thyromegaly or masses palpated, and no cervical lymphadenopathy. Supple, full range of motion without nuchal rigidity, or vertebral point tenderness. No Meningismus. Chest/axilla: Normal chest wall appearance and motion. Nontender with no deformity. No lesions are appreciated. Cardiovascular: Regular rate and rhythm with a normal S1 and S2. No gallops, murmurs, or rubs. Normal PMI, no JVD. No pulse deficits. Respiratory: Lungs have equal breath sounds bilaterally, clear to auscultation and percussion. No rales, rhonchi or wheezes noted. No increased work of breathing, no retractions or nasal flaring. Back: No spinal tenderness. No costovertebral tenderness. Full range of motion. Pelvic Exam: Normal external genitalia. Speculum exam with closed cervical os, no discharge or bleeding noted. Bimanual exam with normal adnexa, no adnexal or cervical motion tenderness. Normal uterus. Female : Normal external genitalia. Skin: Warm, dry with normal turgor. Normal color with no rashes, no lesions, and no evidence of cellulitis. MS/ Extremity: Pulses equal, no cyanosis. Neurovascular intact. Full, normal range of motion. Neuro: Awake and alert, GCS 15, oriented to person, place, time, and situation. Cranial nerves II-XII grossly intact. Motor strength 5/5 in all extremities. Sensory grossly intact. Cerebellar exam normal. Normal gait. Psych: Awake, alert, with orientation to person, place and time. Behavior, mood, and affect are within normal limits. 06:58 Abdomen/GI: Inspection: abdomen appears normal, Bowel sounds: normal, Palpation: mild abdominal tenderness, in the epigastric area, right upper quadrant and left upper quadrant, Liver: no appreciated palpable abnormalities, Hernia: not appreciated. Vital Signs: 06:54 BP 132 / 81; Pulse 92; Resp 18; Temp 97.4(TE); Pulse Ox 98% on R/A; Weight 56.7 kg; oe Height 5 ft. 0 in. (152.40 cm); 07:45 BP 109 / 77; Pulse 52; Resp 17; Pulse Ox 100% ; rb3 09:00 BP 91 / 52; Pulse 54; Resp 16; Pulse Ox 98% ; bp 10:00 BP 115 / 77; Pulse 62; Resp 17; Pulse Ox 100% ; rb3 10:37 BP 106 / 65; Pulse 50; Resp 17; Temp 97.5; Pulse Ox 99% ; bp 06:54 Body Mass Index 24.41 (56.70 kg, 152.40 cm) oe MDM: 06:55 Patient medically screened. baudilio 07:45 Differential diagnosis: gastritis, gastroesophageal reflux disease, GI Bleed, baudilio Hepatitis, non-specific abd pain, pancreatitis, Peptic Ulcer Disease, Perf. Gastric Ulcer, Pyelonephritis, urinary tract infection. Data reviewed: vital signs, nurses notes, lab test result(s), radiologic studies, CT scan. Data interpreted: front desk monitor: rate is 92 beats/min, rhythm is regular, Pulse oximetry: on room air is 98 %. Counseling: I had a detailed discussion with the patient and/or guardian regarding: the historical points, exam findings, and any diagnostic results supporting the discharge/admit diagnosis, lab results, radiology results. ED course: labs, ct ordered , meds given, dr thapa to review and dispo accordingly. 06/12 06:57 Order name: Basic Metabolic Panel; Complete Time: 08:21 baudilio 06/12 06:57 Order name: CBC with Diff; Complete Time: 08:21 baudilio 06/12 06:57 Order name: Hepatic Function; Complete Time: 08:21 baudilio 06/12 06:57 Order name: Lipase; Complete Time: 08:21 baudilio 06/12 07:08 Order name: Urine Dipstick-Ancillary; Complete Time: 07:47 [facility] 06/12 06:57 Order name: IV Saline Lock; Complete Time: 06:58 [facility] 06/12 06:58 Order name: CT Abd/Pelvis - PO and IV Contrast; Complete Time: 10:28 [facility] 06/12 07:16 Order name: Urine --Ancillary (enter results); Complete Time: 07:47 06/12 06:57 Order name: Labs collected and sent; Complete Time: 07:17 [facility] 06/12 06:57 Order name: Urine Dipstick-Ancillary (obtain specimen); Complete Time: 07:17 [facility] 06/12 06:57 Order name: Urine Test (obtain specimen); Complete Time: 07:17 [facility] Administered Medications: 07:30 Drug: ProTONIX 40 mg Route: IVP; Site: right antecubital; jl7 10:39 Follow up: Response: Nausea is decreased bp 07:30 Drug: NS 0.9% 1000 ml Route: IV; Rate: 1 bolus; Site: right antecubital; jl7 10:39 Follow up: IV Status: Completed infusion; IV Intake: 1000ml bp 07:32 Drug: Reglan 10 mg Route: IVP; Site: right antecubital; jl7 10:40 Follow up: Response: Nausea is decreased bp 07:34 Drug: morphine 2 mg Route: IVP; Site: right antecubital; jl7 10:40 Follow up: Response: Pain is decreased bp Disposition: 06/12/20 10:30 Discharged to Home. Impression: Epigastric pain, Calculus of kidney - left. - Condition is Stable. - Discharge Instructions: Gastritis, Pediatric, Renal Colic, [id number], Abdominal Pain, Adult, [id number], Helicobacter Pylori Infection. - Medication Reconciliation Form, Thank You Letter, Antibiotic Education, Prescription Opioid Use form. - Follow up: Private Physician; When: Tomorrow; Reason: If symptoms return, Continuance of care. Signatures: Dispatcher [employer] EDBernardo Putnam MD MD cha Leal, Jahala RN RN jl7 Akil Dumont RN RN bp Dean Birmingham MD MD ma2 Corrections: (The following items were deleted from the chart) 07:17 07:11 Urine Culture ordered. EDMS EDMS 10:45 10:30 06/12/2020 10:30 Discharged to Home. Impression: Epigastric pain; Calculus of bp kidney - left. Condition is Stable. Forms are Medication Reconciliation Form, Thank You Letter, Antibiotic Education, Prescription Opioid Use. Follow up: Private Physician; When: Tomorrow; Reason: If symptoms return, Continuance of care. ma2
--- NOTE | 2020-06-12 10:31 | ER ---
Nurse's Notes [facility] Name: Briana Oconnell Age: 24 yrs Sex: Female : 1995 Arrival Date: 06/12/2020 Time: 06:49 Bed 6 Private MD: Hailey Harvey H Diagnosis: Epigastric pain;Calculus of kidney-left Presentation: 06/12 07:00 Coronavirus screen: Client denies travel out of the [place] in the last 14 days. At this jl7 time, the client does not indicate any symptoms associated with coronavirus-19. Ebola Screen: No symptoms or risks identified at this time. Initial Sepsis Screen: Does the patient meet any 2 criteria? No. Patient's initial sepsis screen is negative. Does the patient have a suspected source of infection? No. Patient's initial sepsis screen is negative. Risk Assessment: Do you want to hurt yourself or someone else? Patient reports no desire to harm self or others. Onset of symptoms is unknown. Care prior to arrival: None. 07:00 Method Of Arrival: Ambulatory jl7 07:00 Acuity: NICOLE 3 jl7 07:00 Chief complaint: Patient states: Reports she started having abdominal pain that has ea been going on for several weeks but today it worsened. Coronavirus screen: At this time, the client does not indicate any symptoms associated with coronavirus-19. Ebola Screen: No symptoms or risks identified at this time. Initial Sepsis Screen: Does the patient meet any 2 criteria? No. Patient's initial sepsis screen is negative. Does the patient have a suspected source of infection? No. Patient's initial sepsis screen is negative. Risk Assessment: Do you want to hurt yourself or someone else? Patient reports no desire to harm self or others. Onset of symptoms was June 12, 2020. 07:00 Method Of Arrival: Ambulatory ea 07:00 Acuity: NICOLE 3 ea Triage Assessment: 07:00 General: Appears uncomfortable, Behavior is appropriate for age. Pain: Complains of ea pain in abdomen. GI: Abdomen is non-distended. Historical: - Allergies: 07:41 No Known Allergies; jl7 - PMHx: 07:41 h. pylori; jl7 - PSHx: 07:41 Cholecystectomy; ; jl7 - Immunization history:: Adult Immunizations unknown. - Social history:: Smoking status: unknown. - Family history:: not pertinent. Screenin:59 Abuse screen: Denies threats or abuse. Nutritional screening: No deficits noted. ea Tuberculosis screening: No symptoms or risk factors identified. Fall Risk None identified. Assessment: 07:00 General: SEE TRIAGE NOTE. RECD REPORT FROM [facility]. bp 07:00 GI: Bowel sounds present X 4 quads. Abd is soft X 4 quads. bp 07:30 Reassessment: Pt finished drinking oral contrast, CT notified. jl7 08:22 Reassessment: Pt. resting with eyes closed, respirations even, unlabored. rb3 10:37 Reassessment: PT D/C HOME AMBULATORY, DX WITH LEFT KIDNEY CALCULUS. bp Vital Signs: 06:54 BP 132 / 81; Pulse 92; Resp 18; Temp 97.4(TE); Pulse Ox 98% on R/A; Weight 56.7 kg; oe Height 5 ft. 0 in. (152.40 cm); 07:45 BP 109 / 77; Pulse 52; Resp 17; Pulse Ox 100% ; rb3 09:00 BP 91 / 52; Pulse 54; Resp 16; Pulse Ox 98% ; bp 10:00 BP 115 / 77; Pulse 62; Resp 17; Pulse Ox 100% ; rb3 10:37 BP 106 / 65; Pulse 50; Resp 17; Temp 97.5; Pulse Ox 99% ; bp 06:54 Body Mass Index 24.41 (56.70 kg, 152.40 cm) oe ED Course: 06:49 Patient arrived in ED. es 06:49 Hailey Harvey DO is Private Physician. es 06:52 Bernardo Ho MD is Attending Physician. baudilio 06:57 Akil Dumont, RN is Primary Nurse. bp 06:58 Inserted saline lock: 20 gauge in right antecubital area, using aseptic technique. ea Blood collected. 06:59 Arm band placed on right wrist. Patient placed in an exam room, on a stretcher, on ea pulse oximetry. 07:17 Basic Metabolic Panel Sent. eb 07:17 CBC with Diff Sent. eb 07:17 Hepatic Function Sent. eb 07:17 Lipase Sent. eb 07:41 Patient has correct armband on for positive identification. Bed in low position. Call jl7 light in reach. Side rails up X 1. Pulse ox on. NIBP on. Warm blanket given. 07:42 Triage completed. jl7 09:40 CT Abd/Pelvis - PO and IV Contrast In Process Unspecified. EDMS 10:28 Attending Physician role handed off by Bernardo Ho MD ma2 10:28 Dean Birmingham MD is Attending Physician. ma2 10:38 No provider procedures requiring assistance completed. IV discontinued, intact, bp bleeding controlled, No redness/swelling at site. Pressure dressing applied. Administered Medications: 07:30 Drug: ProTONIX 40 mg Route: IVP; Site: right antecubital; jl7 10:39 Follow up: Response: Nausea is decreased bp 07:30 Drug: NS 0.9% 1000 ml Route: IV; Rate: 1 bolus; Site: right antecubital; jl7 10:39 Follow up: IV Status: Completed infusion; IV Intake: 1000ml bp 07:32 Drug: Reglan 10 mg Route: IVP; Site: right antecubital; jl7 10:40 Follow up: Response: Nausea is decreased bp 07:34 Drug: morphine 2 mg Route: IVP; Site: right antecubital; jl7 10:40 Follow up: Response: Pain is decreased bp Intake: 10:39 IV: 1000ml; Total: 1000ml. bp Outcome: 10:30 Discharge ordered by . ma2 10:38 Discharged to home ambulatory. bp 10:38 Condition: stable 10:38 Discharge instructions given to patient, Instructed on discharge instructions, follow up and referral plans. Demonstrated understanding of instructions, follow-up care. 10:45 Patient left the ED. bp Signatures: Dispatcher [employer] EDMS Bernardo Ho MD MD cha Salyer, Edna es Espinosa, Orlando oe Leal, Jahala RN RN jl7 Huma Roy RN RN ea Peltier, Brian RN RN bp Dean Birmingham MD MD ma2 Botello, Elizabeth eb Barber, Rebecca, RN RN rb3 Corrections: (The following items were deleted from the chart) 07:17 07:17 Urine Culture drawn and sent. EDAK 10:39 10:38 Discharge instructions given to patient, Instructed on discharge instructions, bp follow up and referral plans. medication usage, Demonstrated understanding of instructions, follow-up care, medications, Prescriptions given X 2, bp
[2020-06-12 17:26] VITALS: BP 106/65; TEMP 97.5; O2SAT 99
== END 2020-06-12 10:45 | disposition home or self-care (01) ==
LOC: ER 06:46
DX: R10.13 Epigastric pain (principal); N20.0 Calculus of kidney
CPT/HCPCS: 85025; 80048; 36415; 81025; 80076; 81003; 83690; 74177; Q9967; J2765; C9113; J2270; J7030; 96361; 96374; 96375; 99284

== ENCOUNTER 2020-08-20 12:53 | Emergency (ER) | payer OTHER ==
[2020-08-20 14:06] LABS: Absolute Lymphocytes (CBC) 0.9 K/uL (0.7-4.9); Basophils % 0.5 % (0-1.3); Hematocrit 35.9 % (36.0-45.0); Lymphocytes % 8.9 % (15.3-44.8); RBC Red Blood Cell Count 3.81 M/uL (3.86-4.86)
[2020-08-20 14:16] LABS: ALT/SGPT 18 U/L (12-78); AST/SGOT 8 U/L (15-37); Albumin 3.9 g/dL (3.4-5.0); Alkaline Phosphatase 41 U/L (45-117); BUN Blood Urea Nitrogen 9 mg/dL (7-18); Bicarbonate 28 mmol/L (21-32); Bilirubin Direct 0.2 mg/dL (0-0.2); Bilirubin Total 0.7 mg/dL (0.2-1.0); Glucose Level 80 mg/dL (74-106); Lipase 37 U/L (73-393); Potassium 3.7 mmol/L (3.5-5.1); Protein, Total 6.7 g/dL (6.4-8.2); Sodium Level 144 mmol/L (136-145)
[2020-08-20] MEDS ORDERED: NA CHLORIDE 0.9% 1,000 ML ONE (14:32)
[2020-08-20] MEDS ORDERED: ONDANSETRON 4 MG/2 ML VIAL ONE (14:32)
[2020-08-20] MEDS ORDERED: MORPHINE 4 MG/ML SYR ONE (14:32)
[2020-08-20] MEDS ORDERED: FAMOTIDINE 20 MG/2 ML VIAL IV ONE (14:33)
--- NOTE | 2020-08-20 15:33 | EDPHYS ---
Physician Documentation [facility] Name: Briana Oconnell Age: 24 yrs Sex: Female : 1995 Arrival Date: 08/20/2020 Time: 12:54 Bed 24 Private MD: Hailey Harvey H ED Physician Stanley Naidu HPI: 08/20 15:39 This 24 yrs old Female presents to ER via Ambulatory with complaints of kb Abdominal Pain, Vomiting. 15:39 The patient presents with abdominal pain in the epigastric area. Onset: The kb symptoms/episode began/occurred this morning. The symptoms do not radiate. Associated signs and symptoms: Pertinent positives: nausea and vomiting. The symptoms are described as constant. Modifying factors: The symptoms are alleviated by nothing, the symptoms are aggravated by nothing. Severity of pain: At its worst the pain was moderate in the emergency department the pain is unchanged. The patient has experienced similar episodes in the past, chronically. The patient has not recently seen a physician. Pt reports she has had intermittent epigastric pain since she was 16 or 17. Reports she has had H.pylori and taken the treatment course a few times over the years. Had her gallbladder removed last year to see if that would resolve the pain. Had endoscopy that showed an ulcer. States she has been having this current "attack" since 0500. . 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 pylori; stomach ulcer; aj1 - PSHx: 13:12 Cholecystectomy; ; aj1 - Immunization history:: Client reports receiving the 2nd dose of the Covid vaccine, Flu vaccine is up to date. - Social history:: Smoking status: Patient denies any tobacco usage or history of. ROS: 15:39 Constitutional: Negative for fever, chills, and weight loss. kb 15:39 Abdomen/GI: Positive for abdominal pain, nausea and vomiting. 15:39 All other systems are negative. Exam: 15:39 Head/Face: Normocephalic, atraumatic. ENT: Moist Mucous membranes Respiratory: kb Respirations even and unlabored. No increased work of breathing, no retractions or nasal flaring. Skin: Warm, dry with normal turgor. Normal color. MS/ Extremity: Pulses equal, no cyanosis. Neurovascular intact. Full, normal range of motion. Neuro: Awake and alert, GCS 15, oriented to person, place, time, and situation. Moves all extremities. Normal gait. Psych: Awake, alert, with orientation to person, place and time. Behavior, mood, and affect are within normal limits. 15:39 Constitutional: The patient appears alert, awake, uncomfortable. 15:39 Abdomen/GI: Inspection: abdomen appears normal, Bowel sounds: normal, Palpation: soft, in all quadrants, mild abdominal tenderness, in the epigastric area. Vital Signs: 13:05 BP 129 / 82; Pulse 88; Resp 16; Temp 99.1(O); Pulse Ox 100% on R/A; Weight 52.16 kg aj1 (R); Height 5 ft. 0 in. (152.40 cm) (R); Pain 5/10; 15:33 BP 126 / 71; Pulse 60; Resp 16; Pulse Ox 100% on R/A; aj1 13:05 Body Mass Index 22.46 (52.16 kg, 152.40 cm) aj1 MDM: 12:57 Patient medically screened. kb 15:38 Data reviewed: vital signs, nurses notes. Data interpreted: Pulse oximetry: on room air kb is 100 %. Interpretation: normal. 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 15:38 ED course: Pt feeling much better after treatment. . kb 08/20 13:28 Order name: Basic Metabolic Panel kb 08/20 13:28 Order name: CBC with Diff; Complete Time: 14:38 kb 08/20 13:28 Order name: Hepatic Function kb 08/20 13:28 Order name: Lipase; Complete Time: 14:23 kb 08/20 13:29 Order name: Basic Metabolic Panel; Complete Time: 14:23 EDMS 08/20 13:29 Order name: Liver (Hepatic) Function; Complete Time: 14:23 [facility] 08/20 13:28 Order name: IV Saline Lock; Complete Time: 13:55 kb 08/20 13:28 Order name: Labs collected and sent; Complete Time: 13:55 kb Administered Medications: 14:19 Drug: Zofran (Ondansetron) 4 mg Route: IVP; Site: right antecubital; aj1 16:24 Follow up: Response: No adverse reaction aj1 14:19 Drug: morphine 4 mg Route: IVP; Site: right antecubital; aj1 16:24 Follow up: Response: No adverse reaction aj1 14:20 Drug: Pepcid (famotidine) 20 mg Route: IVP; Site: right antecubital; aj1 16:24 Follow up: Response: No adverse reaction aj1 14:20 Drug: NS 0.9% 1000 ml Route: IV; Rate: 1000 ml; Site: right antecubital; aj1 16:24 Follow up: IV Status: Completed infusion; IV Intake: 1000ml aj Disposition: 08/20/20 15:32 Discharged to Home. Impression: Upper abdominal pain, unspecified. - Condition is Stable. - Discharge Instructions: Abdominal Pain, Adult, [id number]. - Prescriptions for Bentyl 20 mg Oral Tablet - take 1 tablet by ORAL route every 6 hours As needed; 20 tablet. Zofran 4 mg Oral Tablet - take 1 tablet by ORAL route every 6 hours As needed; 20 tablet. - Medication Reconciliation Form, Thank You Letter, Antibiotic Education, Prescription Opioid Use form. - Follow up: Emergency Department; When: As needed; Reason: Worsening of condition. Follow up: Private Physician; When: 2 - 3 days; Reason: Recheck today's complaints, Continuance of care, Re-evaluation by your physician. Addendum: 08/23/2020 07:11 Co-signature as Attending Physician, Stanley Naidu MD I agree with the assessment and k dr plan of care. Signatures: Dispatcher [employer] [facility] Kaye Covington, [employer]-C [employer]-Ckb Kaleigh Carty RN RN aj1 Stanley Naidu MD MD [facility] Corrections: (The following items were deleted from the chart) 08/20 16:25 15:32 08/20/2020 15:32 Discharged to Home. Impression: Upper abdominal pain, aj1 unspecified. Condition is Stable. Forms are Medication Reconciliation Form, Thank You Letter, Antibiotic Education, Prescription Opioid Use. Follow up: Emergency Department; When: As needed; Reason: Worsening of condition. Follow up: Private Physician; When: 2 - 3 days; Reason: Recheck today's complaints, Continuance of care, Re-evaluation by your physician. kb
--- NOTE | 2020-08-20 15:33 | ER ---
Nurse's Notes [facility] Name: Briana Oconnell Age: 24 yrs Sex: Female : 1995 Arrival Date: 08/20/2020 Time: 12:54 Bed 24 Private MD: Hailey Harvey H Diagnosis: Upper abdominal pain, unspecified Presentation: 08/20 13:05 Chief complaint: Patient states: Epigastric pain that started this morning at 5 am. aj1 Patient states that she has had frequent episodes of this abdominal pain, patient states that she had her gallbladder removed in January and she also had an EGD where she was diagnosed with a stomach ulcer and H. Pylori. Patient states she took all her antibiotics but has not been able to follow up with Dr. Hayes about her ulcers. Patient states that she has vomited twice today, both times were "green bile" Denies fever, denies diarrhea. Coronavirus screen: Client denies travel out of the [place] in the last 14 days. At this time, the client does not indicate any symptoms associated with coronavirus-19. Ebola Screen: Patient denies travel to an Ebola-affected area in the 21 days before illness onset. Initial Sepsis Screen: Does the patient meet any 2 criteria? No. Patient's initial sepsis screen is negative. Does the patient have a suspected source of infection? Yes: Acute abdominal pain. Risk Assessment: Do you want to hurt yourself or someone else? Patient reports no desire to harm self or others. Onset of symptoms was August 20, 2020 at 05:00. 13:05 Method Of Arrival: Ambulatory aj1 13:05 Acuity: NICOLE 3 aj1 Triage Assessment: 13:12 General: Appears in no apparent distress. uncomfortable, Behavior is calm, cooperative, aj1 appropriate for age. Pain: Complains of pain in epigastric area. GI: Abdomen is flat, non-distended. FINANCIAL SERVICE REP: 13:12 LMP N/A - control method aj1 Historical: - Allergies: 13:12 No Known Allergies; aj1 - Home Meds: 13:12 pantoprazole oral oral [Active]; aj1 - PMHx: 13:12 h. pylori; stomach ulcer; aj1 - PSHx: 13:12 Cholecystectomy; ; aj1 - Immunization history:: Client reports receiving the 2nd dose of the Covid vaccine, Flu vaccine is up to date. - Social history:: Smoking status: Patient denies any tobacco usage or history of. Screenin:13 Abuse screen: Denies threats or abuse. Denies injuries from another. Nutritional aj1 screening: No deficits noted. Tuberculosis screening: No symptoms or risk factors identified. Fall Risk None identified. Assessment: 13:13 General: Appears in no apparent distress. uncomfortable, Behavior is calm, cooperative, aj1 appropriate for age. Pain: Complains of pain in epigastric area Pain does not radiate. Pain currently is 5 out of 10 on a pain scale. at worst was 10 out of 10 on a pain scale. Quality of pain is described as pressure, sharp, Pain began 8 hours ago Is intermittent. Neuro: Level of Consciousness is awake, alert, obeys commands, Oriented to person, place, time, situation. Cardiovascular: Patient's skin is warm and dry. Respiratory: Airway is patent Respiratory effort is even, unlabored, Respiratory pattern is regular, symmetrical. GI: Abdomen is flat, non-distended, Bowel sounds present X 4 quads. Abd is soft X 4 quads Reports upper abdominal pain, nausea, vomiting, Patient currently denies diarrhea. : No signs and/or symptoms were reported regarding the genitourinary system. EENT: No signs and/or symptoms were reported regarding the EENT system. Derm: No signs and/or symptoms reported regarding the dermatologic system. Skin is pink, warm \\T\\ dry. normal. Musculoskeletal: No signs and/or symptoms reported regarding the musculoskeletal system. Circulation, motion, and sensation intact. 13:59 Reassessment: Patient states that her pain is getting bad again. 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 14:15 Reassessment: Patient appears in no apparent distress at this time. No changes from aj1 previously documented assessment. Patient and/or family updated on plan of care and expected duration. Pain level reassessed. Patient is alert, oriented x 3, equal unlabored respirations, skin warm/dry/pink. 15:15 Reassessment: Patient appears in no apparent distress at this time. No changes from aj1 previously documented assessment. Patient and/or family updated on plan of care and expected duration. Pain level reassessed. Patient is alert, oriented x 3, equal unlabored respirations, skin warm/dry/pink. 16:23 Reassessment: Patient appears in no apparent distress at this time. No changes from aj1 previously documented assessment. Patient and/or family updated on plan of care and expected duration. Pain level reassessed. Patient is alert, oriented x 3, equal unlabored respirations, skin warm/dry/pink. Vital Signs: 13:05 BP 129 / 82; Pulse 88; Resp 16; Temp 99.1(O); Pulse Ox 100% on R/A; Weight 52.16 kg aj1 (R); Height 5 ft. 0 in. (152.40 cm) (R); Pain 5/10; 15:33 BP 126 / 71; Pulse 60; Resp 16; Pulse Ox 100% on R/A; aj1 13:05 Body Mass Index 22.46 (52.16 kg, 152.40 cm) aj1 ED Course: 12:54 Patient arrived in ED. as 12:54 Hailey Harvey DO is Private Physician. as 12:57 Kaye Covington FNP-C is [facility]. kb 12:57 Stanley Naidu MD is Attending Physician. kb 13:05 Kaleigh Carty RN is Primary Nurse. aj1 13:11 Triage completed. aj1 13:12 Arm band placed on Patient placed in an exam room. aj1 13:13 Patient has correct armband on for positive identification. Call light in reach. Side aj1 rails up X 1. 13:13 No provider procedures requiring assistance completed. aj1 13:40 Initial lab(s) drawn, by me, sent to lab. Inserted saline lock: 20 gauge in right aj1 antecubital area, using aseptic technique. Blood collected. 16:23 IV discontinued, intact, bleeding controlled, No redness/swelling at site. Pressure aj1 dressing applied. Administered Medications: 14:19 Drug: Zofran (Ondansetron) 4 mg Route: IVP; Site: right antecubital; aj1 16:24 Follow up: Response: No adverse reaction aj1 14:19 Drug: morphine 4 mg Route: IVP; Site: right antecubital; aj1 16:24 Follow up: Response: No adverse reaction aj1 14:20 Drug: Pepcid (famotidine) 20 mg Route: IVP; Site: right antecubital; aj1 16:24 Follow up: Response: No adverse reaction aj1 14:20 Drug: NS 0.9% 1000 ml Route: IV; Rate: 1000 ml; Site: right antecubital; aj1 16:24 Follow up: IV Status: Completed infusion; IV Intake: 1000ml aj1 Intake: 16:24 IV: 1000ml; Total: 1000ml. aj1 Outcome: 15:32 Discharge ordered by MD. jeronimo 16:23 Discharged to home ambulatory. aj1 16:23 Condition: good 16:23 Discharge instructions given to patient, Instructed on discharge instructions, follow up and referral plans. medication usage, Demonstrated understanding of instructions, follow-up care, medications, Prescriptions given X 2. 16:25 Patient left the ED. aj1 Signatures: Kaye Covington, SHANNAN JASMINE-Kaleigh Antony, RN RN aj1 Joanie Tanner as
[2020-08-20 17:20] VITALS: TEMP 99.1; O2SAT 100
[2020-08-20 17:32] VITALS: BP 126/71
== END 2020-08-20 16:25 | disposition home or self-care (01) ==
LOC: ER 12:53
DX: R10.13 Epigastric pain (principal)
CPT/HCPCS: 96361; 85025; 80048; 36415; 80076; 83690; 96375; 96374; 99284; J7030; J2405

== ENCOUNTER 2020-11-25 08:02 | Emergency (ER) | payer OTHER ==
[2020-11-25 08:33] LABS: Absolute Lymphocytes (CBC) 1.9 K/uL (0.7-4.9); Basophils % 0.8 % (0-1.3); Hematocrit 39.8 % (36.0-45.0); Lymphocytes % 17.9 % (15.3-44.8); MPV 7.5 fL (7.6-11.3); RBC Red Blood Cell Count 4.18 M/uL (3.86-4.86)
[2020-11-25 08:41] LABS: Urine Blood 3+ (Negative); Urine Glucose Negative (Negative); Urine Protein 1+ (Negative); Urine Specific Gravity 1.015 (1.005-1.030); Urine pH 8.5 (5.0-7.0)
[2020-11-25 08:46] LABS: ALT/SGPT 38 U/L (12-78); AST/SGOT 26 U/L (15-37); Alkaline Phosphatase 54 U/L (45-117); BUN Blood Urea Nitrogen 7 mg/dL (7-18); Bicarbonate 28 mmol/L (21-32); Bilirubin Direct 0.3 mg/dL (0-0.2); Bilirubin Total 1.1 mg/dL (0.2-1.0); Glucose Level 188 mg/dL (74-106); Lipase 67 U/L (73-393); Potassium 3.9 mmol/L (3.5-5.1); Protein, Total 7.4 g/dL (6.4-8.2); Sodium Level 145 mmol/L (136-145)
[2020-11-25] MEDS ORDERED: FAMOTIDINE 20 MG/2 ML VIAL IV ONE (08:53)
[2020-11-25] MEDS ORDERED: NA CHLORIDE 0.9% 1,000 ML ONE (08:53)
[2020-11-25] MEDS ORDERED: METOCLOPRAMIDE 10 MG/2mL INJ ONE (08:53)
[2020-11-25 09:32] LABS: Urine Bacteria <20 /HPF (<20); Urine RBC 20-50 /HPF (NONE SEEN)
--- NOTE | 2020-11-25 10:58 | RAD REPORT ---
EXAM DESCRIPTION: CT - Abdomen Pelvis W Contrast - 11/25/2020 10:21 am CLINICAL HISTORY: abdominal pain COMPARISON: Abdomen Pelvis W Contrast dated 06/12/2020; CT ABD PELVIS W CONTRAST dated 05/02/2012 TECHNIQUE: Biphasic, helical CT imaging of the abdomen and pelvis was performed following 100 ml non -ionic IV contrast. No oral contrast administered. All CT scans are performed using dose optimization technique as appropriate and may include automated exposure control or mA/KV adjustment according to patient size. FINDINGS: No suspicious findings in the lung bases. No focal liver parenchymal lesions seen. No portal vein abnormality identified. There is a periportal edema pattern seen increased or new from the June 2020. This is nonspecific and can be seen with [place] hepatic parenchymal disease or is a secondary response to a systemic process not otherwise eviden t. Gallbladder is absent. No biliary tree dilatation. Pancreas and spleen show no suspicious findings. Symmetric renal function is seen with no hydronephrosis or suspicious renal mass. Unchanged nonobstru cting left renal calculus. No pyelonephritis or acute parenchymal process. No bladder abnormalities. No adrenal abnormalities. Uterus and ovaries show no suspicious findings. IUD is in place. No dilated bowel loops or bowel wall thickening. No appendicitis. No free air, free fluid or inflamma tory stranding. No hernia, mass or bulky lymphadenopathy. No suspicious bony findings. IMPRESSION: Contrast enhanced CT abdomen and pelvis showing no acute or emergent finding. Periportal edema pattern in the liver is nonspecific and can be seen with hepatic parenchymal disease or as a secondary response to a systemic process not otherwise evident on this examination. Overall significance of this finding is doubtful. 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
--- NOTE | 2020-11-25 12:06 | ER ---
Nurse's Notes [facility] Name: Briana Oconnell Age: 25 yrs Sex: Female : 1995 Arrival Date: 11/25/2020 Time: 08:04 Bed 20 Private MD: Diagnosis: Abdominal pain, unspecified Presentation: 11/25 08:15 Chief complaint: Patient states: Epigastric burning/ sharp pain that began this ss morning. Pt reports she has hx of this due to H. Pylori and peptic ulcers. Coronavirus screen: Client denies travel out of the [place] in the last 14 days. Ebola Screen: Patient denies exposure to infectious person. Patient denies travel to an Ebola-affected area in the 21 days before illness onset. Initial Sepsis Screen: Does the patient meet any 2 criteria? No. Patient's initial sepsis screen is negative. Does the patient have a suspected source of infection? No. Patient's initial sepsis screen is negative. Risk Assessment: Do you want to hurt yourself or someone else? Patient reports no desire to harm self or others. Onset of symptoms was November 25, 2020. 08:15 Method Of Arrival: Ambulatory 08:15 Acuity: NICOLE 3 ss Historical: - Allergies: 08:40 No Known Allergies; ss - Home Meds: 08:40 None [Active]; ss - PMHx: 08:40 h. pylori; Stomach ulcer; ss - PSHx: 08:40 section; ss - Immunization history:: Client reports receiving the 2nd dose of the Covid vaccine. - Social history:: Smoking status: Patient denies any tobacco usage or history of. Screenin:28 Abuse screen: Denies threats or abuse. Denies injuries from another. Nutritional tr6 screening: No deficits noted. Tuberculosis screening: No symptoms or risk factors identified. Fall Risk None identified. Assessment: 09:00 General: Appears distressed, uncomfortable, Behavior is crying, restless. Pain: tr6 Complains of pain in abdomen. Pain: Pain currently is 10 out of 10 on a pain scale. Neuro: No deficits noted. Cardiovascular: No deficits noted. Respiratory: No deficits noted. GI: Bowel sounds present X 4 quads. Abdomen is tender to palpation. : No deficits noted. EENT: No deficits noted. Derm: No deficits noted. Musculoskeletal: No deficits noted. 09:28 Reassessment: Patient states symptoms have improved. tr6 12:37 Reassessment: Patient appears in no apparent distress at this time. Patient states tr6 symptoms have improved. Critical care time stopped, patient has stabilized. Patient states symptoms have not improved. pt resting comfortably in bed. pending discharge. Vital Signs: 08:15 BP 145 / 95; Pulse 71; Resp 20; Temp 98.8; Pulse Ox 100% on R/A; kj1 09:27 BP 91 / 51; Pulse 92; Resp 12; Pulse Ox 100% on R/A; Pain 2/10; tr6 ED Course: 08:04 Patient arrived in ED. ds1 08:09 Koki Garcia, AILIN is Primary Nurse. tr6 08:10 Emil Celaya PA is PHCP. jmm 08:10 Stanley Naidu MD is Attending Physician. jmm 08:15 Initial lab(s) drawn, by nh, sent to lab. Inserted saline lock: 20 gauge in right kj1 antecubital area, using aseptic technique. Blood collected. 08:40 Triage completed. ss 08:40 Arm band placed on right wrist. ss 09:28 Resting quietly. tr6 09:28 No provider procedures requiring assistance completed. tr6 09:28 Patient has correct armband on for positive identification. Bed in low position. Call tr6 light in reach. Side rails up X2. Pulse ox on. NIBP on. Door closed. Noise minimized. Visitors limited. Lights dimmed. Moved to private room. Warm blanket given. Diet: Patient is NPO. 10:[address] tr6 10:20 CT Abd/Pelvis - IV Contrast Only In Process Unspecified. EDMS 12:46 IV discontinued, intact, bleeding controlled, No redness/swelling at site. Pressure tr6 dressing applied. Administered Medications: 08:46 Drug: Pepcid (famotidine) 20 mg Route: IVP; Site: right antecubital; tr6 09:17 Follow up: Response: No adverse reaction tr6 08:47 Drug: NS 0.9% 1000 ml Route: IV; Rate: 1 bolus; Site: right antecubital; tr6 08:47 Drug: Reglan (metoCLOPramide) 20 mg Route: IVP; Site: right antecubital; tr6 09:17 Follow up: Response: No adverse reaction tr6 Outcome: 12:06 Discharge ordered by . sarah beth 12:38 Discharged to home ambulatory, pt refused wheelchair at this time tr6 12:38 Condition: good 12:38 Discharge instructions given to patient, Instructed on discharge instructions, follow up and referral plans. medication usage, safety practices, Demonstrated understanding of instructions, follow-up care, medications. 12:47 Patient left the ED. tr6 Signatures: Dispatcher [employer] EDMS Emil Celaya PA PA jmm Sanford, Demi ds1 Kathie Summers, AILIN RN Chely Machuca kj1 Koki Garcia RN RN tr6
--- NOTE | 2020-11-25 12:06 | EDPHYS ---
Physician Documentation [facility] Name: Briana Oconnell Age: 25 yrs Sex: Female : 1995 Arrival Date: 11/25/2020 Time: 08:04 Bed 20 Private MD: ED Physician Stanley Naidu HPI: 11/25 08:14 This 25 yrs old Female presents to ER via Ambulatory with complaints of jmm Abdominal Pain, Nausea. 08:14 The patient presents with abdominal pain. Onset: The symptoms/episode began/occurred jmm gradually, 2 day(s) ago. Associated signs and symptoms: Pertinent positives: nausea and vomiting. The symptoms are described as achy. Modifying factors: The symptoms are alleviated by warm bath. the symptoms are aggravated by nothing. Historical: - Allergies: 08:40 No Known Allergies; ss - Home Meds: 08:40 None [Active]; ss - PMHx: 08:40 h. pylori; Stomach ulcer; ss - PSHx: 08:40 section; ss - Immunization history:: Client reports receiving the 2nd dose of the Covid vaccine. - Social history:: Smoking status: Patient denies any tobacco usage or history of. ROS: 08:14 Constitutional: Negative for fever, chills, and weight loss, Cardiovascular: Negative jmm for chest pain, palpitations, and edema, Respiratory: Negative for shortness of breath, cough, wheezing, and pleuritic chest pain. 08:14 Abdomen/GI: Positive for vomiting. 08:14 All other systems are negative. Exam: 08:14 Constitutional: This is a well developed, well nourished patient who is awake, alert, jmm and in no acute distress. Head/Face: atraumatic. Eyes: EOMI, no conjunctival erythema appreciated ENT: Moist Mucus Membranes Neck: Trachea midline, Supple Chest/axilla: Normal chest wall appearance and motion. Cardiovascular: Regular rate and rhythm. No edema appreciated Respiratory: Normal respirations, no respiratory distress appreciated 08:14 Back: Normal ROM Skin: General appearance color normal MS/ Extremity: Moves all extremities, no obvious deformities appreciated, no edema noted to the lower extremities Neuro: Awake and alert, normal gait Psych: Behavior is normal, Mood is normal, Patient is cooperative and pleasant 08:14 Abdomen/GI: Inspection: abdomen appears normal, Bowel sounds: normal, Palpation: soft, mild abdominal tenderness, in all quadrants. Vital Signs: 08:15 BP 145 / 95; Pulse 71; Resp 20; Temp 98.8; Pulse Ox 100% on R/A; kj1 09:27 BP 91 / 51; Pulse 92; Resp 12; Pulse Ox 100% on R/A; Pain 2/10; tr6 MDM: 08:14 Patient medically screened. sarah beth 12:02 Data reviewed: vital signs, nurses notes. Counseling: I had a detailed discussion with sarah beth the patient and/or guardian regarding: the historical points, exam findings, and any diagnostic results supporting the discharge/admit diagnosis, lab results, radiology results, the need for outpatient follow up, to return to the emergency department if symptoms worsen or persist or if there are any questions or concerns that arise at home. ED course: Patient is alert nontoxic in appearance in the ED. Patient states that her abdominal pain has decreased. Patient is able to tolerate p.o. Patient advised to follow-up with GI and otherwise given strict return precautions. Patient understood and agrees plan of care.. 11/25 08:14 Order name: Basic Metabolic Panel; Complete Time: 08:58 [facility] 11/25 08:14 Order name: CBC with Diff; Complete Time: 08:58 [facility] 11/25 08:14 Order name: Hepatic Function; Complete Time: 08:58 [facility] 11/25 08:14 Order name: Lipase; Complete Time: 08:58 [facility] 11/25 08:41 Order name: Urine Dipstick-Ancillary; Complete Time: 08:58 [facility] 11/25 09:03 Order name: Urine Microscopic Only; Complete Time: 09:38 2 11/25 08:14 Order name: IV Saline Lock; Complete Time: 08:16 [facility] 11/25 08:14 Order name: Labs collected and sent; Complete Time: 08:16 [facility] 11/25 08:59 Order name: Urine Test (obtain specimen); Complete Time: 09:17 [facility] 11/25 09:33 Order name: Urine Culture [facility] 11/25 10:04 Order name: CT Abd/Pelvis - IV Contrast Only; Complete Time: 10:59 [facility] Administered Medications: 08:46 Drug: Pepcid (famotidine) 20 mg Route: IVP; Site: right antecubital; tr6 09:17 Follow up: Response: No adverse reaction tr6 08:47 Drug: NS 0.9% 1000 ml Route: IV; Rate: 1 bolus; Site: right antecubital; tr6 08:47 Drug: Reglan (metoCLOPramide) 20 mg Route: IVP; Site: right antecubital; tr6 09:17 Follow up: Response: No adverse reaction tr6 Disposition: 13:32 Co-signature as Attending Physician, Stanley Naidu MD I agree with the assessment and kdr plan of care. Disposition Summary: 11/25/20 12:06 Discharge Ordered Location: Home [facility] Condition: Stable jmm Diagnosis - Abdominal pain, unspecified jmm Followup: [facility] - With: Private Physician - When: 2 - 3 days - Reason: Recheck today's complaints, Continuance of care, Re-evaluation by your physician Forms: - Medication Reconciliation Form [facility] - Thank You Letter jmm - Antibiotic Education jm - Prescription Opioid Use [facility] Signatures: Dispatcher [employer] EDStanley Lugo MD MD kdr Mickail, Joel, PA PA [facility] Kathie Summers, RN RN Koki Garcia RN RN tr6
[2020-11-25 13:23] VITALS: TEMP 98.8; O2SAT 100
[2020-11-25 13:25] VITALS: BP 91/51
== END 2020-11-25 12:47 | disposition home or self-care (01) ==
LOC: ER 08:02
DX: R10.9 Unspecified abdominal pain (principal); R11.2 Nausea with vomiting, unspecified
CPT/HCPCS: 87088; 85025; 87086; 80048; 36415; 80076; 83690; 74177; 96375; 96374; 99284; Q9967; J2765; J7030; 81003; 81015

== ENCOUNTER 2021-07-15 08:12 | Emergency (ER) | payer OTHER ==
--- OUTSIDE RECORDS SUMMARY | 2021-07-15 08:15 | XMS REPORT | Continuity of Care Document ---
:1995 Author Organization [facility] t Address [address] [place] [address] Care Team Providers Name Role Phone Anene GLOBAL LOGISTICS MANAGER Attending Clinician Lab, Fam Pob I Attending Clinician Unavailable Ebrahim GLOBAL LOGISTICS MANAGER Attending Clinician EBRAHIM Attending Clinician Unavailable Payers Payer Name Policy Type Policy Number Effective Date Expiration Date Pending sale to [facility] [id number] 2014 2019 [facility] MEDICAID 00:00:00 00:00:00 Problems Condition Condition Condition Status Onset Resolution Last Treating Co mments Source Name Details Category Date Date Treatment Clinician Date H/O H/O Disease Active Univers 1-20 ity of section section 00:00: [place] complicati complicati 00 Me dical ng ng Branch 39 weeks 39 weeks Disease Active Unive rs gestation gestation 1-19 ity of of of 00:00: [place] 00 Medi olaf Branch Previous Previous Disease Active Unive rs 1-19 ity of section section 00:00: [place] complicati complicati 00 Me dical ng ng Branch Allergies, Adverse Reactions, Alerts Allergy Allergy Status Severity Reaction(s) Onset Inactive Treating Comm ents Source Name Type Date Date Clinician NO KNOWN Drug Active Univers ALLERGIE Class ity of S [facility] [place] [facility] Social History Social Habit Start Date Stop Date Quantity Comments Source Sex Assigned At Uni [facility] [place] Smoking Status Start Date Stop Date Source Never smoker [facility] Medications Ordered Filled Start Stop Current Ordering Indication Dosage Frequency Signature Comments Components Source Medication Medication Date Date Medication? Clinician (SIG) Name Name gary Yes 12.5mg Take 10 mL Univers e 1-22 by mouth ity of (PHENERGAN) 00:00: every 4 Davin as 6.25 mg/5 00 (four) Medical mL solution hours as Bran ch needed for Nausea and Vomiting (N/V). acetaminoph Yes 2{tbl} Take 2 Un sunil en-codeine 1-22 Tabs by ity of (TYLENOL 00:00: mouth [place] #3) 300-30 00 every 4 Medica l mg tablet (four) Branch hours as needed for Pain (scale 1-3). promethazin Yes 12.5mg Take 10 mL Univers e 1-22 by mouth ity of (PHENERGAN) 00:00: every 4 Davin as 6.25 mg/5 00 (four) Medical mL solution hours as Bran ch needed for Nausea and Vomiting (N/V). acetaminoph Yes 2{tbl} Take 2 Un sunil en-codeine 1-22 Tabs by ity of (TYLENOL 00:00: mouth [place] #3) 300-30 00 every 4 Medica l mg tablet (four) Branch hours as needed for Pain (scale 1-3). Procedures This patient has no known procedures. Encounters Start End Encounter Admission Attending Care Care Encounter Source Date/Time Date/Time Type Type Clinicians Facility Department ID 2019-09-26 2019-09-[id number] [facility] 00:00:00 00:00:00 [employer] [id number] it y of [place] [id number] Davin as Professio [phone] Ma dical nal [address] 2019-09-26 2019-09-26 [facility] [id number] 00:00:00 00:00:00 Tr[employer]y [employer] [id number] [place] [id number] Professio [phone] [place] [address] [address] 2019-09-25 2019-09-25 Laboratory Lab, [facility] Fam Pob I [facility] [id number] [facility] 13:01:09 13:21:09 Only Alonzo Pickens [facility] [id number] ity [facility] [id number] [place] as Professio [phone] Ma dical [address] 2019-09-25 2019-09-25 Laboratory Lab, [facility] [id number] 13:01:09 13:21:09 Only Fam Pob I Health [id number] [place] [id number] Professio [phone] [place] [address] [address] 2019-09-25 2019-09-25 Outpatient R [facility] [id number] Univers 13:00:00 13:00:00 ALONZO gonzalez [facility] Results This patient has no known results.
[2021-07-15] MEDS ORDERED: NA CHLORIDE 0.9% 1,000 ML ONE (08:41)
[2021-07-15] MEDS ORDERED: MORPHINE 4 MG/ML SYR ONE (08:41)
[2021-07-15] MEDS ORDERED: FAMOTIDINE 20 MG/2 ML VIAL IV ONE (08:41)
[2021-07-15] MEDS ORDERED: ONDANSETRON 4 MG/2 ML VIAL ONE (08:41)
[2021-07-15 08:54] LABS: Absolute Lymphocytes (CBC) 1.5 K/uL (0.7-4.9); Hematocrit 38.9 % (36.0-45.0); Lymphocytes % 8.9 % (15.3-44.8); MPV 7.2 fL (7.6-11.3)
[2021-07-15 09:13] LABS: ALT/SGPT 37 U/L (12-78); AST/SGOT 20 U/L (15-37); Albumin 3.8 g/dL (3.4-5.0); Alkaline Phosphatase 39 U/L (45-117); BUN Blood Urea Nitrogen 11 mg/dL (7-18); Bicarbonate 26 mmol/L (21-32); Bilirubin Total 0.7 mg/dL (0.2-1.0); Glucose Level 144 mg/dL (74-106); Lipase 63 U/L (73-393); Potassium 3.7 mmol/L (3.5-5.1); Sodium Level 143 mmol/L (136-145)
[2021-07-15 09:31] LABS: Urine Blood Trace-intact (Negative); Urine Glucose Negative (Negative); Urine Protein 1+ (Negative); Urine pH 8.5 (5.0-7.0)
--- NOTE | 2021-07-15 10:02 | RAD REPORT ---
EXAM DESCRIPTION: CTAbdomen Pelvis W Contrast - 07/15/2021 9:45 am CLINICAL HISTORY: Epigastric pain COMPARISON: Abdomen Pelvis W Contrast dated 11/25/2020; Abdomen Pelvis W Contrast dated 06/12/2020; CT ABD PELVIS W CONTRAST dated 05/02/2012 TECHNIQUE: CT of the abdomen and pelvis was performed. All CT scans are performed using dose optimization technique as appropriate and may include automated exposure control or mA/KV adjustment according to patient size. FINDINGS: Lower chest: No acute abnormality. Liver: Nonspecific periportal edema. Biliary: Cholecystectomy Stomach: No significant focal abnormality. Duodenum: No significant focal abnormality. Pancreas: No significant abnormality. Spleen: No significant abnormality. Adrenal: No suspicious lesions. Kidney/ureter: No hydronephrosis. No renal calculi. Retroperitoneum: No retroperitoneal adenopathy. Vascular: No aneurysm. Bowel: Normal appendix. No bowel obstruction.. Peritoneum: Small volume of pelvic free fluid which is likely physiologic. Bladder: Grossly unremarkable. Reproductive: No adnexal masses. IUD. Bones: No acute fracture. Other: n/a IMPRESSION: No acute intra-abdominal or pelvic finding. Normal appendix. Pelvic free fluid is likely physiologic.
[2021-07-15 10:16] LABS: Blood Morphology Comment NOT SEEN (NOT SEEN); Platelet Estimate INCR; Platelets, Giant FEW; White Blood Cell Scan OK (OK)
--- NOTE | 2021-07-15 10:19 | ER ---
Nurse's Notes [facility] Name: Briana Oconnell Age: 25 yrs Sex: Female : 1995 Arrival Date: 07/15/2021 Time: 08:15 Bed 6 Private MD: Diagnosis: Abdominal pain, unspecified;Nausea Presentation: 07/15 08:23 Chief complaint: Patient states: abd pain, N/V that began at 0500 this morning. Pt ss states, "it's another one of my stomach flare ups that I come in for." Pt states she sees Dr. Cross and is supposed to be taking an oral antibiotics for H. Pylori, but states she hasn't been able to start and finish the course.". Coronavirus screen: Client denies travel out of the [place] in the last 14 days. Ebola Screen: Patient denies exposure to infectious person. Patient denies travel to an Ebola-affected area in the 21 days before illness onset. Initial Sepsis Screen: Does the patient meet any 2 criteria? No. Patient's initial sepsis screen is negative. Does the patient have a suspected source of infection? No. Patient's initial sepsis screen is negative. Risk Assessment: Do you want to hurt yourself or someone else? Patient reports no desire to harm self or others. Onset of symptoms was July 15, 2021. 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 pylori; Stomach ulcer; GERD; ss - PSHx: 08:30 section; ss - Immunization history:: Adult Immunizations unknown. - Social history:: Patient uses alcohol, occasionally. Smoking status: unknown. Screenin:44 Abuse screen: Denies threats or abuse. Nutritional screening: No deficits noted. jd3 Tuberculosis screening: No symptoms or risk factors identified. Fall Risk Ambulatory Aid- None/Bed Rest/Nurse Assist (0 pts). Gait- Normal/Bed Rest/Wheelchair (0 pts) Mental Status- Oriented to own ability (0 pts). Total Daigle Fall Scale indicates No Risk (0-24 pts). Assessment: 08:43 General: Appears in no apparent distress. uncomfortable, Behavior is calm, cooperative, jd3 appropriate for age. Pain: Complains of pain in abdomen Quality of pain is described as sharp, tender. Neuro: Butts Agitation-Sedation Scale (RASS): 0 - Alert and Calm Level of Consciousness is awake, alert, obeys commands, Oriented to person, place, time, situation. Cardiovascular: Denies chest pain, Capillary refill < 3 seconds Patient's skin is warm and dry. Respiratory: Airway is patent Respiratory effort is even, unlabored, Respiratory pattern is regular, symmetrical, Denies cough, shortness of breath. GI: Abdomen is flat, non-distended, Abd is soft X 4 quads Abdomen is tender to palpation X 4 quads. Reports diarrhea, nausea, vomiting. : No signs and/or symptoms were reported regarding the genitourinary system. EENT: No signs and/or symptoms were reported regarding the EENT system. Derm: Skin is intact, Skin is dry, Skin is normal, Skin temperature is warm. Musculoskeletal: Circulation, motion, and sensation intact. Range of motion: intact in all extremities. 09:19 Reassessment: Patient appears in no apparent distress at this time. No changes from jd3 previously documented assessment. Patient and/or family updated on plan of care and expected duration. Pain level reassessed. Patient is alert, oriented x 3, equal unlabored respirations, skin warm/dry/pink. 10:29 Reassessment: Patient appears in no apparent distress at this time. Patient and/or jd3 family updated on plan of care and expected duration. Pain level reassessed. Patient is alert, oriented x 3, equal unlabored respirations, skin warm/dry/pink. Patient states feeling better. Vital Signs: 08:23 BP 136 / 49; Pulse 63; Resp 16; Temp 97.8(TE); Pulse Ox 98% on R/A; Weight 63.5 kg; ss Height 5 ft. 0 in. (152.40 cm); Pain 9/10; 10:24 BP 132 / 60; Pulse 64; Resp 16 S; Pulse Ox 98% on R/A; jd3 08:23 Body Mass Index 27.34 (63.50 kg, 152.40 cm) ED Course: 08:15 Patient arrived in ED. ds1 08:20 Joryd Verma NP is PHCP. pm1 08:20 Jono Jolley MD is Attending Physician. pm1 08:23 Matt Tovar, AILIN is Primary Nurse. jd3 08:30 Triage completed. ss 08:30 Arm band placed on right wrist. ss 08:42 Patient has correct armband on for positive identification. Bed in low position. Call tp1 light in reach. 08:42 Inserted saline lock: 20 gauge in right antecubital area, using aseptic technique. tp1 Blood collected. 09:47 CT Abd/Pelvis - IV Contrast Only In Process Unspecified. EDMS 10:18 Jeremy Cross MD is Referral Physician. pm1 10:29 No provider procedures requiring assistance completed. IV discontinued, intact, jd3 bleeding controlled, No redness/swelling at site. Pressure dressing applied. Administered Medications: 08:42 Drug: NS 0.9% 1000 ml Route: IV; Rate: 1 bolus; Site: right antecubital; jd3 09:40 Follow up: Response: No adverse reaction; IV Status: Completed infusion jd3 08:42 Drug: Pepcid (famotidine) 20 mg Route: IVP; Site: right antecubital; jd3 09:40 Follow up: Response: No adverse reaction jd3 08:42 Drug: Zofran (Ondansetron) 4 mg Route: IVP; Site: right antecubital; jd3 09:40 Follow up: Response: No adverse reaction jd3 08:43 Drug: morphine 4 mg Route: IVP; Site: right antecubital; jd3 09:40 Follow up: Response: No adverse reaction; RASS: Alert and Calm (0) jd3 10:24 Drug: GI Cocktail without - (Maalox Suspension 30 ml, Lidocaine Liquid 2 % 15 jd3 ml) Route: PO; 10:29 Follow up: Response: No adverse reaction; Medication administered at discharge. jd3 Outcome: 10:18 Discharge ordered by . pm1 10:30 Discharged to home ambulatory, with family. jd3 10:30 Condition: stable 10:30 Discharge instructions given to patient, family, Instructed on discharge instructions, follow up and referral plans. medication usage, Demonstrated understanding of instructions, follow-up care, medications, Prescriptions given X 2. 10:30 Patient left the ED. jd3 Signatures: Dispatcher [employer] EDAR Anila Acuna1 Kathie Summers, RN RN ss Jordy Verma, DINING ROOM CASHIER DINING ROOM CASHIER pm1 Matt Tovar, AILIN RN jd3 Koki Padilla tp1
--- NOTE | 2021-07-15 10:19 | EDPHYS ---
Physician Documentation [facility] Name: Briana Oconnell Age: 25 yrs Sex: Female : 1995 Arrival Date: 07/15/2021 Time: 08:15 Bed 6 Private MD: ED Physician Jono Jolley HPI: 07/15 08:31 This 25 yrs old Female presents to ER via Ambulatory with complaints of pm1 Abdominal Pain, Nausea. 08:31 The patient presents with abdominal pain in the epigastric area. pm1 08:31 Onset: The symptoms/episode began/occurred last night. The symptoms do not radiate. pm1 Associated signs and symptoms: Pertinent positives: nausea and vomiting, Pertinent negatives: chest pain, constipation, diarrhea, dysuria, fever, shortness of breath. The symptoms are described as sharp. Modifying factors: The symptoms are alleviated by nothing, the symptoms are aggravated by Certain foods and stress. Severity of pain: in the emergency department the pain is unchanged. The patient has not experienced similar symptoms in the past. The patient has not recently seen a physician, Has seen Dr. Cross in the past for multiple similar situations. Patient reports positive for h. pylori that did not resolve with 3 rounds of h. pylori treatment from Dr. Cross. Went to another GI MD for second opinion and was diagnosed with h. pylori and given another round of h. pylori treatment. Patient reports flare ups of her epigastric pain from stress or certain foods that she eats. 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 pylori; Stomach ulcer; GERD; ss - PSHx: 08:30 section; ss - Immunization history:: Adult Immunizations unknown. - Social history:: Patient uses alcohol, occasionally. Smoking status: unknown. ROS: 08:31 Constitutional: Negative for fever, chills, and weight loss, Cardiovascular: Negative pm1 for chest pain, palpitations, and edema, Respiratory: Negative for shortness of breath, cough, wheezing, and pleuritic chest pain. 08:31 Back: Negative for injury and pain, MS/Extremity: Negative for injury and deformity, Skin: Negative for injury, rash, and discoloration, Neuro: Negative for headache, weakness, numbness, tingling, and seizure. 08:31 Abdomen/GI: Positive for abdominal pain, nausea and vomiting, Negative for diarrhea, constipation. 08:31 All other systems are negative. Exam: 08:31 Constitutional: This is a well developed, well nourished patient who is awake, alert, pm1 and in no acute distress. Head/Face: Normocephalic, atraumatic. 08:31 Back: No spinal tenderness. No costovertebral tenderness. Full range of motion. Skin: Warm, dry with normal turgor. Normal color with no rashes, no lesions, and no evidence of cellulitis. MS/ Extremity: Pulses equal, no cyanosis. Neurovascular intact. Full, normal range of motion. 08:31 Cardiovascular: Exam negative for acute changes, Rate: normal, Rhythm: regular, Pulses: no pulse deficits are appreciated, Heart sounds: normal, normal S1and S2. 08:31 Respiratory: Exam negative for acute changes, respiratory distress, shortness of breath, Breath sounds: are clear throughout. 08:31 Abdomen/GI: Inspection: abdomen appears normal, Palpation: soft, in all quadrants, mild abdominal tenderness, in the epigastric area. 08:31 Neuro: Exam negative for acute changes, Orientation: is normal, Mentation: is normal, Motor: is normal, moves all fours. Vital Signs: 08:23 BP 136 / 49; Pulse 63; Resp 16; Temp 97.8(TE); Pulse Ox 98% on R/A; Weight 63.5 kg; ss Height 5 ft. 0 in. (152.40 cm); Pain 9/10; 10:24 BP 132 / 60; Pulse 64; Resp 16 S; Pulse Ox 98% on R/A; jd3 08:23 Body Mass Index 27.34 (63.50 kg, 152.40 cm) ss MDM: 08:27 Patient medically screened. pm1 10:03 Data reviewed: vital signs. Data interpreted: Pulse oximetry: on room air is 98 %. pm1 Interpretation: normal. 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 Recommend that the schedule appointment to be reevaluated for her h. pylori and need for possible follow up EGD, to return to the emergency department if symptoms worsen or persist or if there are any questions or concerns that arise at home. 07/15 08:31 Order name: CBC with Diff; Complete Time: 10:20 pm1 07/15 08:31 Order name: CMP; Complete Time: 09:48 pm1 07/15 08:31 Order name: Lipase; Complete Time: 09:48 pm1 07/15 09:03 Order name: CBC Smear Scan; Complete Time: 10:20 EDMS 07/15 09:31 Order name: Urine Dipstick-Ancillary; Complete Time: 09:48 EDMS 07/15 09:35 Order name: Urine --Ancillary (enter results); Complete Time: 10:07 kj1 07/15 08:31 Order name: IV Saline Lock; Complete Time: 08:42 pm1 07/15 08:31 Order name: Labs collected and sent; Complete Time: 08:42 pm1 07/15 08:32 Order name: CT Abd/Pelvis - IV Contrast Only; Complete Time: 10:03 pm1 07/15 08:31 Order name: Urine Dipstick-Ancillary (obtain specimen); Complete Time: 09:47 pm1 07/15 08:31 Order name: Urine Test (obtain specimen); Complete Time: 09:47 pm1 Administered Medications: 08:42 Drug: NS 0.9% 1000 ml Route: IV; Rate: 1 bolus; Site: right antecubital; jd3 09:40 Follow up: Response: No adverse reaction; IV Status: Completed infusion jd3 08:42 Drug: Pepcid (famotidine) 20 mg Route: IVP; Site: right antecubital; jd3 09:40 Follow up: Response: No adverse reaction jd3 08:42 Drug: Zofran (Ondansetron) 4 mg Route: IVP; Site: right antecubital; jd3 09:40 Follow up: Response: No adverse reaction jd3 08:43 Drug: morphine 4 mg Route: IVP; Site: right antecubital; jd3 09:40 Follow up: Response: No adverse reaction; RASS: Alert and Calm (0) jd3 10:24 Drug: GI Cocktail without - (Maalox Suspension 30 ml, Lidocaine Liquid 2 % 15 jd3 ml) Route: PO; 10:29 Follow up: Response: No adverse reaction; Medication administered at discharge. jd3 Disposition Summary: 07/15/21 10:18 Discharge Ordered Location: Home pm1 Problem: new pm1 Symptoms: have improved pm1 Condition: Stable pm1 Diagnosis - Abdominal pain, unspecified pm1 - Nausea pm1 Followup: pm1 - With: Emergency Department - When: As needed - Reason: Worsening of condition Followup: pm1 - With: Jeremy Cross MD - When: 2 - 3 days - Reason: Recheck today's complaints, Continuance of care, Re-evaluation by your physician Discharge Instructions: - Discharge Summary Sheet pm1 - Abdominal Pain, Adult pm1 - Nausea and Vomiting, Adult pm1 Forms: - Medication Reconciliation Form pm1 - Thank You Letter pm1 - Antibiotic Education pm1 - Prescription Opioid Use pm1 Prescriptions: - ondansetron 4 mg Oral tablet,disintegrating - take 1 tablet by ORAL route every 8 hours As needed; 20 tablet; Refills: 0, pm1 Product Selection Permitted - dicyclomine 20 mg Oral Tablet - take 1 tablet by ORAL route every 6 hours As needed; 20 tablet; Refills: 0, pm1 Product Selection Permitted Signatures: Dispatcher [employer] EDLA Kathie Summers RN RN Jordy Gaona NP ORTHOPAEDIC DOCTOR pm1 Matt Tovar RN RN jd3
[2021-07-15] MEDS ORDERED: MAGNES/ALUMIN/SIMET 30ML UCUP ONE (10:24)
[2021-07-15] MEDS ORDERED: LIDOCAINE VISCOUS 2% SOLN 15 ML UDC ONE (10:24)
[2021-07-15 10:42] VITALS: TEMP 97.8; O2SAT 98
[2021-07-15 10:49] VITALS: BP 132/60
== END 2021-07-15 10:30 | disposition home or self-care (01) ==
LOC: ER 08:12
DX: R10.13 Epigastric pain (principal); R11.0 Nausea
CPT/HCPCS: 96361; 85025; 36415; 81025; 81003; 83690; 80053; 74177; 96375; 96374; 99284; Q9967; J7030; J2405; J3490

== ENCOUNTER 2021-08-21 09:52 | Emergency (ER) | payer OTHER ==
--- OUTSIDE RECORDS SUMMARY | 2021-08-21 09:56 | XMS REPORT | Continuity of Care Document ---
:[address] 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 Attending Clinician Lab, Fam Pob I Attending Clinician Unavailable Ebrahim ELECTRIC METER TECHNICIAN Attending Clinician EBRAHIM Attending Clinician Unavailable Payers Payer Name Policy Type Policy Number Effective Date Expiration Date [facility] [id number] 2014 2019 [facility] MEDICAID 00:00:00 00:00:00 Problems Condition Condition Condition [...] Active [employer] Class ity of S [facility] Social History Social Habit Start Date Stop Date Quantity Comments Source Sex Assigned At [facility] Smoking Status Start Date Stop Date Source Never smoker [facility] Medications Ordered Filled Start Stop Current Ordering [...] Tabs by ity of (TYLENOL 00:00: mouth [place] #3) 300-30 00 every 4 Medica l mg tablet (four) Branch hours as needed for Pain (scale 1-3). Procedures This patient has no known procedures. Encounters Start End Encounter Admission Attending Care Care Encounter Source Date/Time Date/Time Type Type Clinicians Facility Department ID 2019-09-26 2019-09-26 [id number] [facility] 00:00:00 00:00:00 [employer] [id number] it y of [place] [id number] Davin as Professio [phone] Pr dical nal [address] 2019-09-26 2019-09-26 [facility] [id number] 00:00:00 00:00:00 Trudy [employer] [id number] [place] [id number] Professio [phone] [place] [address] [address] 2019-09-25 2019-09-25 Laboratory Lab, [facility] Fam Pob I [facility] [id number] [facility] 13:01:09 13:21:09 Only [facility] [id number] ity [facility] [id number] Davin as Professio [phone] Pr dical [address] 2019-09-25 2019-09-25 Laboratory Lab, [facility] [id number] 13:01:09 13:21:09 Only Fam Pob I Health [id number] [place] [id number] Professio [phone] [place] [address] [address] 2019-09-25 2019-09-[address] [facility] [id number] Univers 13:00:00 13:00:00 ALONZO gonzalez [facility] Results This patient has no known results.
[2021-08-21 10:36] LABS: Absolute Lymphocytes (CBC) 1.2 K/uL (0.7-4.9); Hematocrit 38.9 % (36.0-45.0); Lymphocytes % 12.9 % (15.3-44.8); MPV 7.2 fL (7.6-11.3); RBC Red Blood Cell Count 4.22 M/uL (3.86-4.86)
[2021-08-21] MEDS ORDERED: DICYCLOMINE HCL 20 MG/2 ML AMP IM ONE (10:38)
[2021-08-21] MEDS ORDERED: MAGNES/ALUMIN/SIMET 30ML UCUP ONE (10:38)
[2021-08-21] MEDS ORDERED: PANTOPRAZOLE 40 MG INJ ONE (10:39)
[2021-08-21] MEDS ORDERED: NA CHLORIDE 0.9% 1,000 ML ONE (10:39)
[2021-08-21] MEDS ORDERED: ONDANSETRON 4 MG/2 ML VIAL ONE (10:43)
[2021-08-21 10:54] LABS: Albumin 4.1 g/dL (3.4-5.0); Potassium 3.3 mmol/L (3.5-5.1); Protein, Total 7.4 g/dL (6.4-8.2)
[2021-08-21 11:14] LABS: Urine Blood Negative (Negative); Urine Glucose Negative (Negative); Urine Protein Trace (Negative); Urine Specific Gravity 1.015 (1.005-1.030); Urine pH 8.5 (5.0-7.0)
[2021-08-21 11:25] LABS: Urine Specific Gravity/Preg 1.015 (1.005-1.030)
--- NOTE | 2021-08-21 11:31 | ER ---
Nurse's Notes [facility] Name: Briana Oconnell Age: 25 yrs Sex: Female : 1995 Arrival Date: 08/21/2021 Time: 09:53 Bed 13 Private MD: Hailey Harvey H; Jeremy Cross H Diagnosis: Acute gastritis Presentation: 08/21 10:00 Chief complaint: Patient states: upper abd pain that began 0200, nausea, vomiting, and aa5 diarrhea. 10:00 Coronavirus screen: diarrhea, nausea, vomiting. Ebola Screen: No symptoms or risks aa5 identified at this time. Initial Sepsis Screen: Does the patient meet any 2 criteria? No. Patient's initial sepsis screen is negative. Does the patient have a suspected source of infection? No. Patient's initial sepsis screen is negative. Risk Assessment: Do you want to hurt yourself or someone else? Patient reports no desire to harm self or others. Onset of symptoms was August 2021. 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 pylori; Stomach ulcer; aa5 - PSHx: 10:01 section; aa5 10:03 Cholecystectomy; aa5 - Immunization history:: Adult Immunizations unknown. - Social history:: Smoking status: Patient denies any tobacco usage or history of. Screenin:26 Abuse screen: Denies threats or abuse. Nutritional screening: No deficits noted. jd3 Tuberculosis screening: No symptoms or risk factors identified. Fall Risk Ambulatory Aid- None/Bed Rest/Nurse Assist (0 pts). Gait- Normal/Bed Rest/Wheelchair (0 pts) Mental Status- Oriented to own ability (0 pts). Total Daigle Fall Scale indicates No Risk (0-24 pts). Assessment: 10:23 General: Appears in no apparent distress. comfortable, Behavior is calm, cooperative, jd3 appropriate for age. Pain: Complains of pain in abdomen Quality of pain is described as aching. Neuro: Butts Agitation-Sedation Scale (RASS): 0 - Alert and Calm Level of Consciousness is awake, alert, obeys commands, Oriented to person, place, time, situation. Cardiovascular: Denies chest pain, Capillary refill < 3 seconds Patient's skin is warm and dry. Respiratory: Airway is patent Respiratory effort is even, unlabored, Respiratory pattern is regular, symmetrical, Denies cough, shortness of breath. GI: Abdomen is non-distended, Abd is soft and non tender X 4 quads. Reports upper abdominal pain, nausea. : No signs and/or symptoms were reported regarding the genitourinary system. EENT: No signs and/or symptoms were reported regarding the EENT system. Derm: Skin is intact, Skin is dry, Skin is normal, Skin temperature is warm. Musculoskeletal: Circulation, motion, and sensation intact. Range of motion: intact in all extremities. 11:24 Reassessment: Patient appears in no apparent distress at this time. Patient and/or jd3 family updated on plan of care and expected duration. Pain level reassessed. Patient is alert, oriented x 3, equal unlabored respirations, skin warm/dry/pink. Patient states feeling better. Vital Signs: 10:00 BP 163 / 88; Pulse 78; Resp 20 S; Temp 97.7(TE); Pulse Ox 98% on R/A; Weight 58.97 kg aa5 (R); Height 5 ft. 0 in. (152.40 cm) (R); Pain 9/10; 11:37 BP 96 / 58; Pulse 55; Resp 17 S; Pulse Ox 100% on R/A; jd3 10:00 Body Mass Index 25.39 (58.97 kg, 152.40 cm) aa5 ED Course: 09:53 Patient arrived in ED. as 09:54 Hailey Harvey DO is Private Physician. as 09:54 Jeremy Cross MD is Private Physician. as 10:00 Arm band placed on. aa5 10:03 Triage completed. aa5 10:03 Amy Zarate PA is PHCP. en 10:03 Stanley Naidu MD is Attending Physician. en 10:08 aMtt Tovar RN is Primary Nurse. jd3 10:35 Inserted saline lock: 18 gauge in right antecubital area, using aseptic technique. jd3 Blood collected. 11:24 Patient has correct armband on for positive identification. Bed in low position. Call jd3 light in reach. Side rails up X 1. Pulse ox on. NIBP on. 11:29 Hailey Harvey DO is Referral Physician. en 11:29 Jeremy Cross MD is Referral Physician. en 11:38 No provider procedures requiring assistance completed. IV discontinued, intact, jd3 bleeding controlled, No redness/swelling at site. Pressure dressing applied. Administered Medications: 10:34 Not Given (backordered): Pepcid (famotidine) 20 mg IVP once; dilute with 10 mL 0.9% en NaCl; give over 2 minutes 10:35 Drug: NS 0.9% 1000 ml Route: IV; Rate: 1 bolus; Site: right antecubital; jd3 11:39 Follow up: Response: No adverse reaction; IV Status: Completed infusion jd3 10:35 Drug: Zofran (Ondansetron) 4 mg Route: IVP; Site: right antecubital; jd3 11:30 Follow up: Response: No adverse reaction jd3 10:35 Drug: ProTONIX (pantoprazole) 40 mg Route: IVP; Site: right antecubital; jd3 11:39 Follow up: Response: No adverse reaction jd3 10:45 Drug: Maalox (aluminum hydroxide, magnesium hydroxide, simethicone) Suspension (200 jd3 mg-200 mg-20 mg/5 mL) 30 ml Route: PO; 11:39 Follow up: Response: No adverse reaction jd3 11:09 Drug: Bentyl (dicyclomine) 20 mg Route: IM; Site: right deltoid; jd3 11:39 Follow up: Response: No adverse reaction jd3 Medication: 10:26 VIS not applicable for this client. jd3 Outcome: 11:30 Discharge ordered by . en 11:38 Condition: stable jd3 11:49 Discharged to home ambulatory, with family. jd3 11:49 Discharge instructions given to patient. 11:50 Patient left the ED. jd3 Signatures: Joanie Tanner Audri, RN RN aa5 Matt Tovar RN RN jd3 Amy Zarate PA PA en
--- NOTE | 2021-08-21 11:31 | EDPHYS ---
Physician Documentation [facility] Name: Briana Oconnell Age: 25 yrs Sex: Female : 1995 Arrival Date: 08/21/2021 Time: 09:53 Bed 13 Private MD: Hailey Harvey H; Jeremy Cross H ED Physician Stanley Naidu HPI: 08/21 10:27 This 25 yrs old Female presents to ER via Ambulatory with complaints of en Abdominal Pain, Vomiting. 10:27 25-year-old female with history of gastritis and peptic ulcer disease presents to ED en with epigastric pain, nausea, vomiting, diarrhea since last night. Patient reports she ate little Caesar[employer] and drink coffee which tends to aggravate her stomach. She ran out of her Protonix which also aggravates her gastritis. She denies melena, hematochezia, hematemesis. No fevers, chills, shortness of breath or dyspnea on exertion. 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 pylori; Stomach ulcer; aa5 - PSHx: 10:01 section; aa5 10:03 Cholecystectomy; aa5 - Immunization history:: Adult Immunizations unknown. - Social history:: Smoking status: Patient denies any tobacco usage or history of. ROS: 10:27 Constitutional: Negative for fever, chills, and weight loss. en 10:27 Constitutional: Negative for body aches, chills, fatigue, fever, malaise. 10:27 ENT: Negative for sore throat. 10:27 Cardiovascular: Negative for chest pain. 10:27 Respiratory: Negative for cough, dyspnea on exertion. 10:27 Abdomen/GI: Positive for abdominal pain, nausea, vomiting, and diarrhea, Negative for hematemesis, black/tarry stool, rectal bleeding. 10:27 : Negative for urinary symptoms. 10:27 Skin: Negative for rash. 10:27 All other systems are negative. Exam: 10:27 Constitutional: This is a well developed, well nourished patient who is awake, alert, en and in no acute distress. 10:27 Constitutional: The patient appears in no acute distress, alert, awake. 10:27 Eyes: Conjunctiva: normal, no exudate, no injection. 10:27 ENT: Mouth: Lips: moist, Oral mucosa: pink and intact, moist, Posterior pharynx: is normal, no erythema, no exudate, no swelling, Airway: patent, Tonsils: are normal in appearance. 10:27 Neck: ROM/movement: Meningeal signs: are not present. 10:27 Cardiovascular: Rate: normal, Rhythm: regular, Pulses: no pulse deficits are appreciated, Heart sounds: normal, no murmur, no rub, no gallop. 10:27 Respiratory: the patient does not display signs of respiratory distress, Respirations: normal, Breath sounds: are clear throughout, no rales, rhonchi, no stridor, no wheezing. 10:27 Abdomen/GI: Inspection: abdomen appears normal, Bowel sounds: normal, in all quadrants, Palpation: abdomen is soft and non-tender, in all quadrants, in the Unable to reproduce discomfort on exam. 10:27 Back: CVA tenderness, is absent. 10:27 Musculoskeletal/extremity: ROM: intact in all extremities, full active range of motion. 10:27 Skin: Exam negative for no rash present. 10:27 Neuro: Orientation: appropriate for stated age, to person, place \T\ time. Mentation: appropriate for stated age. 10:27 Psych: Behavior/mood is pleasant, cooperative, Affect is calm. Vital Signs: 10:00 BP 163 / 88; Pulse 78; Resp 20 S; Temp 97.7(TE); Pulse Ox 98% on R/A; Weight 58.97 kg aa5 (R); Height 5 ft. 0 in. (152.40 cm) (R); Pain 9/10; 11:37 BP 96 / 58; Pulse 55; Resp 17 S; Pulse Ox 100% on R/A; jd3 10:00 Body Mass Index 25.39 (58.97 kg, 152.40 cm) aa5 MDM: 10:23 Patient medically screened. en 10:27 Differential diagnosis: gastritis, gastroesophageal reflux disease, Hepatitis, en Irritable bowel syndrome, pancreatitis, Peptic Ulcer Disease, Perf. Duodenal Ulcer, Perf. Gastric Ulcer, Low suspicion for perforated viscus secondary to no peritonitis. Data reviewed: vital signs, nurses notes, lab test result(s), and as a result, I will administer IV fluids. 11:29 ED course: Patient feels better and is tolerating p.o. Pain improved after GI slider. en Will DC home with Zofran, Bentyl, Protonix and ER return precautions. Abdomen is soft, nontender, nondistended at discharge.. 08/21 10:23 Order name: CBC with Diff; Complete Time: : en 08/21 10:23 Order name: CMP; Complete Time: en 08/21 10:23 Order name: Lipase; Complete Time: en 08/21 11:14 Order name: Urine Dipstick-Ancillary; Complete Time: : EDMS 08/21 11:21 Order name: Urine --Ancillary (enter results); Complete Time: eb 08/21 10:23 Order name: IV Saline Lock; Complete Time: : en 08/21 10:23 Order name: Labs collected and sent; Complete Time: en 08/21 10:23 Order name: Urine Dipstick-Ancillary (obtain specimen); Complete Time: en 08/21 10:23 Order name: Urine Test (obtain specimen); Complete Time: 11:12 en Administered Medications: 10:34 Not Given (backordered): Pepcid (famotidine) 20 mg IVP once; dilute with 10 mL 0.9% en NaCl; give over 2 minutes 10:35 Drug: NS 0.9% 1000 ml Route: IV; Rate: 1 bolus; Site: right antecubital; jd3 11:39 Follow up: Response: No adverse reaction; IV Status: Completed infusion jd3 10:35 Drug: Zofran (Ondansetron) 4 mg Route: IVP; Site: right antecubital; jd3 11:30 Follow up: Response: No adverse reaction jd3 10:35 Drug: ProTONIX (pantoprazole) 40 mg Route: IVP; Site: right antecubital; jd3 11:39 Follow up: Response: No adverse reaction jd3 10:45 Drug: Maalox (aluminum hydroxide, magnesium hydroxide, simethicone) Suspension (200 jd3 mg-200 mg-20 mg/5 mL) 30 ml Route: PO; 11:39 Follow up: Response: No adverse reaction jd3 11:09 Drug: Bentyl (dicyclomine) 20 mg Route: IM; Site: right deltoid; jd3 11:39 Follow up: Response: No adverse reaction jd3 Disposition: 13:24 Co-signature as Attending Physician, Stanley Naidu MD I agree with the assessment and kdr plan of care. Disposition Summary: 08/21/21 11:30 Discharge Ordered Location: Home en Problem: an acute exacerbation en Symptoms: have improved en Condition: Stable en Diagnosis - Acute gastritis en Followup: en - With: Hailey Harvey DO - When: As needed - Reason: Followup: en - With: Jeremy Cross MD - When: As needed - Reason: Discharge Instructions: - Discharge Summary Sheet en - Gastritis, Adult, [id number] en Forms: - Medication Reconciliation Form en - Thank You Letter en - Antibiotic Education en - Prescription Opioid Use en Prescriptions: - Protonix 40 mg Oral Tablet - take 1 tablet by ORAL route once daily; 30 tablet; Refills: 0, Product en Selection Permitted - Zofran 4 mg Oral Tablet - take 1 tablet by ORAL route every 12 hours As needed; 20 tablet; Refills: 0, en Product Selection Permitted - dicyclomine 20 mg Oral Tablet - take 1 tablet by ORAL route 3 times per day; 30 tablet; Refills: 0, Product en Selection Permitted Signatures: Dispatcher [employer] EDMS Stanley Naidu MD MD kdr Calderon, Audri RN RN aa5 Matt Tovar RN RN jd3 Amy Zarate PA PA en
[2021-08-21 12:24] VITALS: TEMP 97.7
[2021-08-21 12:26] VITALS: BP 96/58; O2SAT 100
== END 2021-08-21 11:50 | disposition home or self-care (01) ==
LOC: ER 09:52
DX: K29.00 Acute gastritis without bleeding (principal); K21.9 Gastro-esophageal reflux disease without esophagitis
CPT/HCPCS: 96361; 85025; 36415; 81025; 81003; 83690; 80053; 96375; 96372; 96374; 99284; J0500; C9113; J7030; J2405

== ENCOUNTER 2021-09-18 20:34 | Emergency (ER) | payer OTHER ==
[2021-09-18] MEDS ORDERED: ONDANSETRON 4 MG (ODT) TAB ONE (21:32)
[2021-09-18] MEDS ORDERED: KETOROLAC 30 MG/ML INJ ONE (21:43)
[2021-09-18] MEDS ORDERED: PANTOPRAZOLE 40 MG INJ ONE (21:44)
[2021-09-18] MEDS ORDERED: NA CHLORIDE 0.9% 1,000 ML ONE (21:44)
[2021-09-18 21:45] LABS: Absolute Lymphocytes (CBC) 2.3 K/uL (0.7-4.9); Hematocrit 40.6 % (36.0-45.0); MCV 93.9 fL (80-100); MPV 7.4 fL (7.6-11.3); RBC Red Blood Cell Count 4.32 M/uL (3.86-4.86)
[2021-09-18 22:06] LABS: Bilirubin Total 0.9 mg/dL (0.2-1.0); Potassium 3.2 mmol/L (3.5-5.1); Protein, Total 7.5 g/dL (6.4-8.2)
[2021-09-18] MEDS ORDERED: ONDANSETRON 4 MG/2 ML VIAL ONE (22:24)
[2021-09-18 22:34] LABS: Urine Blood Trace-intact (Negative); Urine Glucose Negative (Negative); Urine Protein Negative (Negative)
[2021-09-18 23:49] LABS: Urine Amorphous Sediment 3+ /HPF (NONE SEEN)
[2021-09-18 23:50] LABS: Urine Bacteria <20 /HPF (<20); Urine RBC <5 /HPF (NONE SEEN)
[2021-09-19] MEDS ORDERED: PROMETHAZINE INJ 25 MG/ML AMP ONE ×2 (01:34→02:37)
[2021-09-19] MEDS ORDERED: NA CHLORIDE 0.9% 1,000 ML ONE (02:18)
--- NOTE | 2021-09-19 03:00 | ER ---
Nurse's Notes [facility] Name: Briana Oconnell Age: 26 yrs Sex: Female : 1995 Arrival Date: 09/18/2021 Time: 20:37 Bed 19 Private MD: Diagnosis: Upper abdominal pain, unspecified;Nausea with vomiting, unspecified;Diarrhea, unspecified Presentation: 09/18 20:37 Chief complaint: Patient states: I started having abdominal pain with N/V about an hour jb4 ago. Coronavirus screen: At this time, the client does not indicate any symptoms associated with coronavirus-19. Ebola Screen: No symptoms or risks identified at this time. Initial Sepsis Screen: Does the patient meet any 2 criteria? No. Patient's initial sepsis screen is negative. Does the patient have a suspected source of infection? No. Patient's initial sepsis screen is negative. Risk Assessment: Do you want to hurt yourself or someone else? Patient reports no desire to harm self or others. Onset of symptoms was September 18, 2021. Transition of care: patient was not received from another setting of care. 20:37 Method Of Arrival: Ambulatory jb4 20:37 Acuity: NICOLE 3 jb4 Historical: - Allergies: 20:39 No Known Allergies; jb4 - Home Meds: 20:39 pantoprazole Oral [Active]; jb4 - PMHx: 20:39 GERD; h. pylori; Stomach ulcer; jb4 - PSHx: 20:39 section; Cholecystectomy; jb4 - Immunization history:: Adult Immunizations up to date. - Social history:: Smoking status: Patient denies any tobacco usage or history of. Patient/guardian denies using alcohol, street drugs. Screenin:41 Abuse screen: Denies threats or abuse. Denies injuries from another. Nutritional lg3 screening: No deficits noted. Tuberculosis screening: No symptoms or risk factors identified. Fall Risk None identified. Assessment: 21:41 General: Appears in no apparent distress. uncomfortable, Behavior is calm, cooperative, lg3 fussy. Pain: Complains of pain in abdomen Pain currently is 10 out of 10 on a pain scale. Neuro: No deficits noted. Level of Consciousness is awake, alert, obeys commands, Oriented to person, place, time, situation. Cardiovascular: No deficits noted. Denies chest pain, shortness of breath, Capillary refill < 3 seconds Clubbing of nail beds is absent JVD is absent Patient's skin is warm and dry. Respiratory: No deficits noted. Airway is patent Trachea midline Respiratory effort is even, unlabored, Respiratory pattern is regular, symmetrical, Breath sounds are clear bilaterally. GI: Abdomen is flat, non-distended, Pt is actively vomiting bile, clear fluid, Bowel sounds present X 4 quads. Reports cramping, intolerance of fluids, intolerance of food, nausea, vomiting. : No deficits noted. No signs and/or symptoms were reported regarding the genitourinary system. EENT: No deficits noted. No signs and/or symptoms were reported regarding the EENT system. Derm: No deficits noted. No signs and/or symptoms reported regarding the dermatologic system. Skin is intact, is healthy with good turgor, Skin is dry, Skin temperature is warm. Musculoskeletal: No deficits noted. No signs and/or symptoms reported regarding the musculoskeletal system. Circulation, motion, and sensation intact. Range of motion: intact in all extremities. 23:33 Reassessment: Patient appears in no apparent distress at this time. No changes from lg3 previously documented assessment. Patient and/or family updated on plan of care and expected duration. Pain level reassessed. Patient is alert, oriented x 3, equal unlabored respirations, skin warm/dry/pink. Patient states symptoms have not improved. 09/19 01:31 Reassessment: Patient appears in no apparent distress at this time. No changes from lg3 previously documented assessment. Patient and/or family updated on plan of care and expected duration. Pain level reassessed. Patient is alert, oriented x 3, equal unlabored respirations, skin warm/dry/pink. Patient states symptoms have not improved. 03:34 Reassessment: Patient appears in no apparent distress at this time. No changes from lg3 previously documented assessment. Patient and/or family updated on plan of care and expected duration. Pain level reassessed. Patient is alert, oriented x 3, equal unlabored respirations, skin warm/dry/pink. Vital Signs: 09/18 20:37 BP 155 / 104; Pulse 74; Resp 18; Temp 97.6(TE); Pulse Ox 97% on R/A; Weight 58.97 kg jb4 (R); Height 5 ft. 0 in. (152.40 cm) (R); Pain 12/19; 09/19 00:13 BP 123 / 86; Pulse 56; Resp 17 S; Pulse Ox 98% on R/A; lg3 03:34 BP 134 / 82; Pulse 64; Resp 17 S; Pulse Ox 100% on R/A; lg3 09/18 20:37 Body Mass Index 25.39 (58.97 kg, 152.40 cm) jb4 ED Course: 09/18 20:37 Patient arrived in ED. jb4 20:39 Triage completed. jb4 20:39 Arm band placed on right wrist. jb4 20:44 Kaye Covington FNP-C [facility]. kb 20:44 Bernardo Ho MD is Attending Physician. kb 20:50 Catherine Lester, AILIN is Primary Nurse. lg3 21:34 Lipase Sent. lg3 21:34 CMP Sent. lg3 21:34 CBC with Diff Sent. lg3 21:34 Inserted saline lock: 20 gauge in right antecubital area, using aseptic technique. lg3 Blood collected. 21:41 Patient has correct armband on for positive identification. Bed in low position. Call lg3 light in reach. Side rails up X 1. Client placed on continuous cardiac and pulse oximetry monitoring. NIBP monitoring applied. Door closed. Noise minimized. Warm blanket given. Family accompanied patient. 22:35 Urine Microscopic Only Sent. lg3 09/19 00:27 CT Abd/Pelvis - IV Contrast Only In Process Unspecified. EDMS 03:35 No provider procedures requiring assistance completed. IV discontinued, intact, lg3 bleeding controlled, No redness/swelling at site. Pressure dressing applied. Administered Medications: 09/18 21:34 Drug: Ondansetron 4 mg Route: PO; lg3 21:40 Follow up: Response: No adverse reaction lg3 21:40 Drug: NS 0.9% 1000 ml Route: IV; Rate: 1000 ml; Site: right antecubital; lg3 09/19 00:13 Follow up: IV Status: Completed infusion; IV Intake: 1000ml lg3 09/18 21:40 Drug: Ketorolac 15 mg Route: IVP; Site: right antecubital; lg3 21:40 Follow up: Response: No adverse reaction lg3 21:40 Drug: ProTONIX (pantoprazole) 40 mg Route: IVP; Site: right antecubital; lg3 21:40 Follow up: Response: No adverse reaction lg3 22:18 Drug: Zofran (Ondansetron) 4 mg Route: IVP; Site: right antecubital; lg3 22:18 Follow up: Response: No adverse reaction lg3 09/19 01:31 Drug: Phenergan (promethazine) 12.5 mg Route: IVP; Site: right antecubital; lg3 01:31 Follow up: Response: No adverse reaction lg3 02:14 Drug: NS 0.9% 1000 ml Route: IV; Rate: 1 bolus; Site: right antecubital; lg3 03:36 Follow up: Response: No adverse reaction; IV Status: Completed infusion; IV Intake: lg3 1000ml 02:36 Drug: Phenergan (promethazine) 12.5 mg Route: IVP; Site: right antecubital; bb 02:36 Follow up: Response: No adverse reaction bb Medication: 03:35 VIS not applicable for this client. lg3 Intake: 00:13 IV: 1000ml; Total: 1000ml. lg3 03:36 IV: 1000ml; Total: 2000ml. lg3 Outcome: 02:59 Discharge ordered by MD. astudillo 03:35 Discharged to home ambulatory, with significant other. lg3 03:35 Condition: stable 03:35 Discharge instructions given to patient, significant other, Instructed on discharge instructions, follow up and referral plans. medication usage, Demonstrated understanding of instructions, follow-up care, medications, Prescriptions given X 2. 03:36 Patient left the ED. lg3 Signatures: Dispatcher [employer] EDMS Kaye Covington, AQUATIC INSTRUCTOR-C AQUATIC INSTRUCTOR-Bernardo Rosario MD MD cha Ballard, Brenda, RN RN Marcus Dennison RN RN Catherine Che RN RN lg3
--- NOTE | 2021-09-19 03:00 | EDPHYS ---
Physician Documentation [facility] Name: Briana Oconnell Age: 26 yrs Sex: Female : 1995 Arrival Date: 09/18/2021 Time: 20:37 Bed 19 Private MD: GREGORIO Physician Bernardo Ho HPI: 09/19 01:10 This 26 yrs old Female presents to ER via Ambulatory with complaints of upper kb abd pain, n/v/d. 01:10 The patient presents with abdominal pain in the epigastric area. Onset: The kb symptoms/episode began/occurred today. The symptoms do not radiate. Associated signs and symptoms: Pertinent positives: nausea, vomiting, and diarrhea, Pertinent negatives: fever. The symptoms are described as constant. Modifying factors: The symptoms are alleviated by nothing, the symptoms are aggravated by nothing. Severity of pain: At its worst the pain was moderate in the emergency department the pain is unchanged. The patient has experienced similar episodes in the past. The patient has not recently seen a physician. Pt reports upper abd pain, nausea, vomiting and diarrhea that started today. sTates she has had this several times in the past and it normally goes away after some time, but this time it has lasted longer than normal. Historical: - Allergies: 09/18 20:39 No Known Allergies; jb4 - Home Meds: 20:39 pantoprazole Oral [Active]; jb4 - PMHx: 20:39 GERD; h. pylori; Stomach ulcer; jb4 - PSHx: 20:39 section; Cholecystectomy; jb4 - Immunization history:: Adult Immunizations up to date. - Social history:: Smoking status: Patient denies any tobacco usage or history of. Patient/guardian denies using alcohol, street drugs. ROS: 09/19 01:09 Constitutional: Negative for fever, chills, and weight loss. kb Abdomen/GI: Positive for abdominal pain, nausea, vomiting, and diarrhea. All other systems are negative. Exam: 01:09 Head/Face: Normocephalic, atraumatic. ENT: Moist Mucous membranes Cardiovascular: kb Regular rate and rhythm with a normal S1 and S2. No gallops, murmurs, or rubs. No pulse deficits. Respiratory: Respirations even and unlabored. No increased work of breathing. Talking in full sentences Skin: Warm, dry with normal turgor. Normal color. MS/ Extremity: Pulses equal, no cyanosis. Neurovascular intact. Full, normal range of motion. Neuro: Awake and alert, GCS 15, oriented to person, place, time, and situation. Moves all extremities. Normal gait. Psych: Awake, alert, with orientation to person, place and time. Behavior, mood, and affect are within normal limits. 01:09 Constitutional: The patient appears alert, awake, in obvious pain. 01:09 Abdomen/GI: Inspection: abdomen appears normal, Bowel sounds: normal, Palpation: soft, in all quadrants, moderate abdominal tenderness, in the epigastric area. Vital Signs: 09/18 20:37 BP 155 / 104; Pulse 74; Resp 18; Temp 97.6(TE); Pulse Ox 97% on R/A; Weight 58.97 kg jb4 (R); Height 5 ft. 0 in. (152.40 cm) (R); Pain 12/19; 09/19 00:13 BP 123 / 86; Pulse 56; Resp 17 S; Pulse Ox 98% on R/A; lg3 03:34 BP 134 / 82; Pulse 64; Resp 17 S; Pulse Ox 100% on R/A; lg3 09/18 20:37 Body Mass Index 25.39 (58.97 kg, 152.40 cm) jb4 MDM: 09/18 20:45 Patient medically screened. kb 09/19 01:09 Data reviewed: vital signs, nurses notes. Data interpreted: Pulse oximetry: on room air kb is 98 %. Interpretation: normal. 01:16 Transition of care: After a detail discussion of the patient's case, care is kb transferred to Bernardo Ho MD. ED course: Pt feeling better, pain resolved. 09/18 20:57 Order name: CBC with Diff; Complete Time: 22:06 kb 09/18 20:57 Order name: CMP; Complete Time: 22:12 kb 09/18 20:57 Order name: Lipase; Complete Time: 22:12 kb 09/18 22:29 Order name: Urine Microscopic Only; Complete Time: 23:51 kb 09/18 22:35 Order name: Urine Dipstick-Ancillary; Complete Time: 22:36 EDMS 09/18 22:37 Order name: Urine --Ancillary (enter results); Complete Time: 00:04 mw2 09/18 22:13 Order name: CT Abd/Pelvis - IV Contrast Only kb 09/18 20:57 Order name: IV Saline Lock; Complete Time: 21:34 kb 09/18 20:57 Order name: Labs collected and sent; Complete Time: 21:34 kb 09/18 20:57 Order name: Urine Dipstick-Ancillary (obtain specimen); Complete Time: 22:35 kb 09/18 20:57 Order name: Urine Test (obtain specimen); Complete Time: 22:35 kb 09/19 01:16 Order name: PO challenge; Complete Time: 02:36 kb Administered Medications: 09/18 21:34 Drug: Ondansetron 4 mg Route: PO; lg3 21:40 Follow up: Response: No adverse reaction lg3 21:40 Drug: NS 0.9% 1000 ml Route: IV; Rate: 1000 ml; Site: right antecubital; 3 09/19 00:13 Follow up: IV Status: Completed infusion; IV Intake: 1000ml 3 09/18 21:40 Drug: Ketorolac 15 mg Route: IVP; Site: right antecubital; lg3 21:40 Follow up: Response: No adverse reaction lg3 21:40 Drug: ProTONIX (pantoprazole) 40 mg Route: IVP; Site: right antecubital; lg3 21:40 Follow up: Response: No adverse reaction lg3 22:18 Drug: Zofran (Ondansetron) 4 mg Route: IVP; Site: right antecubital; lg3 22:18 Follow up: Response: No adverse reaction 3 09/19 01:31 Drug: Phenergan (promethazine) 12.5 mg Route: IVP; Site: right antecubital; lg3 01:31 Follow up: Response: No adverse reaction lg3 02:14 Drug: NS 0.9% 1000 ml Route: IV; Rate: 1 bolus; Site: right antecubital; lg3 03:36 Follow up: Response: No adverse reaction; IV Status: Completed infusion; IV Intake: lg3 1000ml 02:36 Drug: Phenergan (promethazine) 12.5 mg Route: IVP; Site: right antecubital; bb 02:36 Follow up: Response: No adverse reaction bb Disposition Summary: 09/19/21 02:59 Discharge Ordered Location: Home baudilio Condition: Stable baudilio Diagnosis - Upper abdominal pain, unspecified baudilio - Nausea with vomiting, unspecified baudilio - Diarrhea, unspecified baudilio Followup: kb - With: Emergency Department - When: As needed - Reason: Worsening of condition Followup: kb - With: Private Physician - When: 2 - 3 days - Reason: Recheck today's complaints, Continuance of care, Re-evaluation by your physician Discharge Instructions: - Discharge Summary Sheet kb - Nausea and Vomiting, Adult, [id number] kb - Abdominal Pain, Adult, [id number] kb - Diarrhea, Adult, [id number] kb Forms: - Medication Reconciliation Form baudilio - Thank You Letter baudilio - Antibiotic Education baudilio - Prescription Opioid Use baudilio - Work release form lg3 Prescriptions: - Zofran 4 mg Oral Tablet - take 1 tablet by ORAL route every 6 hours As needed; 20 tablet; Refills: 0, kb Product Selection Permitted - promethazine 25 mg Oral Tablet - take 1 tablet by ORAL route every 6 hours As needed; 20 tablet; Refills: 0, baduilio Product Selection Permitted Signatures: Dispatcher [employer] Kaye Stanton, THERMODYNAMICS TEACHER-C THERMODYNAMICS TEACHER-Bernardo Rosario MD MD cha Ballard, Brenda, RN RN Marcus Dennison, RN RN jb4 Catherine Lester RN RN lg3
[2021-09-19 03:52] VITALS: TEMP 97.6
[2021-09-19 03:56] VITALS: BP 134/82; O2SAT 100
--- NOTE | 2021-09-19 15:50 | RAD REPORT ---
EXAM DESCRIPTION: CT Abdomen and Pelvis COMPARISON: CT abdomen pelvis July 15, 2021 CLINICAL HISTORY: [facility] MAIN abd pain TECHNIQUE: CT of the abdomen and pelvis was acquired with IV contrast material. Coronal and sagitt al reconstructions were obtained. Automated exposure control was utilized on this examination as a dose lowering technique. FINDINGS: Lung bases: Clear. Liver: Normal. Gallbladder and biliary: Cholecystectomy. Unremarkable biliary tree. Pancreas: Normal. Spleen: Normal. Adrenal glands: Normal adrenal glands. Kidneys: A 4 mm nonobstructing left renal calculus is noted. Stomach and Small Bowel: The stomach and small bowel are normal. Urinary bladder: Normal. Uterus and Adnexa: IUD in place. Colon and Appendix: The colon is unremarkable. No evidence of appendicitis. Retroperitoneum and lymph nodes: Normal. Vascular: Unremarkable. Peritoneal cavity: No ascites or free air. Musculoskeletal and soft tissues: Soft tissues are unremarkable. No aggressive bone lesions. No com pression fracture. IMPRESSION: 1. No acute intra-abdominal abnormality. 2. 4 mm nonobstructing left renal calculus. Electronically signed by: Sam Farrell MD 09/19/2021 2:12 AM CDT Due to temporary technical issues with the PACS/Fluency reporting system, reports are being signed by the in house radiologists without review as a courtesy to insure prompt reporting. The interpreting radiologist is fully responsible for the content of the report.
== END 2021-09-19 03:36 | disposition home or self-care (01) ==
LOC: ER 20:34
DX: R10.13 Epigastric pain (principal); R11.2 Nausea with vomiting, unspecified; R19.7 Diarrhea, unspecified
CPT/HCPCS: 96361; 85025; 36415; 81025; 83690; 80053; 74177; 96375; 96374; 99284; Q9967; J2550 ×2; C9113; Q0162; J7030 ×2; J2405; 81003; 81015

== ENCOUNTER 2021-11-02 11:22 | Emergency (ER) | payer OTHER ==
--- OUTSIDE RECORDS SUMMARY | 2021-11-02 11:25 | XMS REPORT | Continuity of Care Document ---
:1995 Author Organization [facility] t Address [address] [place] [address] Care Team Providers Name Role Phone Trudy Almazan Attending Clinician Lab, Adc Fam Pob I Attending Clinician Unavailable Alonzo Jasmine Attending Clinician ALONZO SIMMONS Attending Clinician Unavailable Payers Payer Name Policy Type Policy Number Effective Date Expiration Date [facility] [id number] 2014 2019 [facility] MEDICAID 00:00:00 00:00:00 Problems Condition Condition [...] Active Univers [facility]ER[place]IE Class ity of S [facility] Social History Social Habit Start Date Stop Date Quantity Comments Source Sex Assigned At Uni versity [facility] Smoking Status Start Date Stop Date Source Never smoker [facility] Medications Ordered Filled Start Stop Current Ordering Indication Dosage Frequency Signature Comments Components Source Medication Medication Date Date Medication? Clinician (SIG) Name Name luisazin Yes 12.5mg Take 10 mL Univers e [...] Tabs by ity of (TYLENOL 00:00: mouth [place] #3) 300-30 00 every 4 Medica l mg tablet (four) Branch hours as needed for Pain (scale 1-3). Procedures This patient has no known procedures. Encounters Start End Encounter Admission Attending Care Care Encounter Source Date/Time Date/Time Type Type Clinicians Facility Department ID 2019-09-26 2019-09-26 [facility] [id number] Univers 00:00:00 00:00:00 [facility] [id number] it y of [place]i [id number] Davin as Professio [phone] Mt dical nal [address] One 2019-09-26 2019-09-26 [facility] [id number] 00:00:00 00:00:00 Tr[facility] [id number] [place] [id number] Professio [phone] [place] [address] [address] 2019-09-25 2019-09-25 Laboratory Lab, [facility] Fam Pob I [facility] [id number] [facility] 13:01:09 13:21:09 Only Alonzo Simmons [facility] [id number] ity of [place] [id number] Davin as Professio [phone] Mt dical [address] Office [address] One 2019-09-25 2019-09-25 Laboratory Lab, [facility] [id number] 13:01:09 13:21:09 Only [facility] Pob I Health [id number] [place] [id number] Professio [phone] [place] [address] [address] 2019-09-25 2019-09-25 Outpatient R IRIS [facility] [id number] Univers 13:00:00 13:00:00 ALONZO gonzalez [facility] Results This patient has no known results.
[2021-11-02 13:32] LABS: Absolute Lymphocytes (CBC) 0.8 K/uL (0.7-4.9); Hematocrit 41.4 % (36.0-45.0); Lymphocytes % 5.7 % (15.3-44.8)
[2021-11-02] MEDS ORDERED: NA CHLORIDE 0.9% 1,000 ML ONE (13:39)
[2021-11-02] MEDS ORDERED: METOCLOPRAMIDE 10 MG/2mL INJ ONE (13:39)
[2021-11-02] MEDS ORDERED: FAMOTIDINE 20 MG/2 ML VIAL IV ONE (13:40)
[2021-11-02] MEDS ORDERED: DIPHENHYDRAMINE 50 MG/ML VIAL ONE (13:40)
[2021-11-02] MEDS ORDERED: LORazepam 2 MG/ML VIAL ONE (13:41)
[2021-11-02 13:46] LABS: Urine Blood Negative (Negative); Urine Glucose Negative (Negative); Urine Protein 2+ (Negative); Urine pH 7.5 (5.0-7.0)
[2021-11-02 13:56] LABS: Albumin 4.2 g/dL (3.4-5.0); Bilirubin Total 0.7 mg/dL (0.2-1.0); Potassium 3.7 mmol/L (3.5-5.1); Protein, Total 7.8 g/dL (6.4-8.2)
[2021-11-02 14:18] LABS: Blood Morphology Comment NOT SEEN (NOT SEEN); Platelet Estimate ADEQ; White Blood Cell Scan OK (OK)
--- NOTE | 2021-11-02 14:41 | RAD REPORT ---
EXAM DESCRIPTION: CTAbdomen Pelvis W Contrast - 11/02/2021 2:31 pm CLINICAL HISTORY: abdominal pain COMPARISON: Abdomen Pelvis W Contrast dated 09/19/2021; Abdomen Pelvis W Contrast dated 07/15/2021; Abdomen Pelvis W Contrast dated 11/25/2020; Abdomen Pelvis W Contrast dated 06/12/2020 TECHNIQUE: CT of the abdomen and pelvis was performed. All CT scans are performed using dose optimization technique as appropriate and may include automated exposure control or mA/KV adjustment according to patient size. FINDINGS: Lower chest: No acute abnormality. Liver: No acute abnormality or suspicious lesions. Biliary: No biliary ductal dilatation. Cholecystectomy Stomach: No significant focal abnormality. Duodenum: No significant focal abnormality. Pancreas: No significant abnormality. Spleen: No significant abnormality. Adrenal: No suspicious lesions. Kidney/ureter: No hydronephrosis. 5 mm left renal stone. Retroperitoneum: No retroperitoneal adenopathy. Vascular: No aneurysm. Bowel: No significant focal abnormality. Normal appendix. Peritoneum: No ascites or free air. Bladder: Grossly unremarkable. Reproductive: No adnexal masses. IUD. Bones: No acute fracture. Other: n/a IMPRESSION: No acute intra-abdominal or pelvic finding. Normal appendix.
--- NOTE | 2021-11-02 17:11 | ER ---
Nurse's Notes [facility] Name: Briana [place] Age: 26 yrs Sex: Female : 1995 Arrival Date: 11/02/2021 Time: 11:26 Bed 18 Private MD: Diagnosis: Abdominal pain, unspecified;Vomiting Presentation: 11/02 12:03 Chief complaint: Patient states: she has a hx of "bad GI problems". Patient states she ap3 is having severe mid upper abdominal pain. Patient has also been having nausea and vomiting. Coronavirus screen: At this time, the client does not indicate any symptoms associated with coronavirus-19. Ebola Screen: No symptoms or risks identified at this time. Initial Sepsis Screen: Does the patient meet any 2 criteria? No. Patient's initial sepsis screen is negative. Does the patient have a suspected source of infection? No. Patient's initial sepsis screen is negative. Risk Assessment: Do you want to hurt yourself or someone else? Patient reports no desire to harm self or others. Onset of symptoms was November 02, 2021. 12:03 Method Of Arrival: Ambulatory ap3 12:03 Acuity: NICOLE 3 ap3 Triage Assessment: 12:05 General: Appears uncomfortable, Behavior is calm, cooperative. Pain: Complains of pain ap3 in epigastric area, right upper quadrant and left upper quadrant Pain currently is 8 out of 10 on a pain scale. Pain began gradually, 1 day ago. Alleviated by heat application. Neuro: Level of Consciousness is awake, alert, obeys commands, Oriented to person, place, time, situation, Gait is steady, Speech is normal. Cardiovascular: Patient's skin is warm and dry. Respiratory: Airway is patent Respiratory effort is even, unlabored. GI: Reports nausea, vomiting. 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 pylori; Stomach ulcer; ap3 - PSHx: 12:04 section; Cholecystectomy; ap3 - Immunization history:: Client reports receiving the 2nd dose of the Covid vaccine. - Social history:: Smoking status: Patient denies any tobacco usage or history of. Screenin:05 Abuse screen: Denies threats or abuse. Nutritional screening: No deficits noted. ap3 Tuberculosis screening: No symptoms or risk factors identified. 16:04 Fall Risk None identified. jh5 Assessment: 16:04 GI: Bowel sounds Abd is soft. jh5 Vital Signs: 12:03 BP 117 / 95; Pulse 56; Resp 17; Pulse Ox 97% ; Weight 58.97 kg; Height 5 ft. (152.40 ap3 cm); Pain 8/10; 12:06 Temp 97.1; ap3 16:03 BP 120 / 84; Pulse 62; Resp 16; Pulse Ox 98% ; jh5 12:03 Body Mass Index 25.39 (58.97 kg, 152.40 cm) ap3 ED Course: 11:26 Patient arrived in ED. cl3 12:04 Triage completed. ap3 12:06 Arm band placed on left wrist. ap3 12:26 Emil Celaya PA is PHCP. [facility] 12:26 Stanley Naidu MD is Attending Physician. [facility] 13:10 Nicole Key, AILIN is Primary Nurse. 5 14:32 CT Abd/Pelvis - IV Contrast Only In Process Unspecified. EDMS 16:04 Patient has correct armband on for positive identification. Bed in low position. Side jh5 rails up X 1. 16:04 No provider procedures requiring assistance completed. Inserted saline lock: 20 gauge jh5 in right antecubital area, using aseptic technique. 17:24 IV discontinued, intact, bleeding controlled, No redness/swelling at site. Pressure jh5 dressing applied. Administered Medications: 13:51 Drug: NS 0.9% 1000 ml Route: IV; Rate: 1 bolus; Site: right antecubital; 5 13:51 Drug: Ativan (LORazepam) 1 mg Route: IVP; Site: right antecubital; 5 13:51 Drug: Reglan (metoCLOPramide) 20 mg Route: IVP; Site: right antecubital; 5 13:51 Drug: diphenhydrAMINE 12.5 mg Route: IVP; Site: right antecubital; 5 13:51 Drug: Pepcid (famotidine) 20 mg Route: IVP; Site: right antecubital; 5 Medication: 16:04 VIS not applicable for this client. [facility] Outcome: 17:11 Discharge ordered by . sarah beth 17:22 Discharged to home ambulatory. jhCarroll 17:22 Condition: good 17:22 Discharge instructions given to patient, Instructed on discharge instructions, follow up and referral plans. safety practices, Demonstrated understanding of instructions, follow-up care, medications, Prescriptions given X 2. 17:27 Patient left the ED. jh5 Signatures: Dispatcher [employer] EDMS Emil Celaya PA PA jmm Prokisch, Amanda, RN RN ap3 Anali Osullivan3 Nicole Key RN RN 5
--- NOTE | 2021-11-02 17:12 | EDPHYS ---
Physician Documentation [facility] Name: Briana [place] Age: 26 yrs Sex: Female : 1995 Arrival Date: 11/02/2021 Time: 11:26 Bed 18 Private MD: ED Physician Stanley Naidu HPI: 11/02 13:15 This 26 yrs old Female presents to ER via Ambulatory with complaints of jmm Abdominal Pain, Vomiting. 13:15 The patient presents with abdominal pain. Onset: The symptoms/episode began/occurred jmm gradually, this morning. The symptoms do not radiate. Associated signs and symptoms: Pertinent positives: nausea and vomiting. The symptoms are described as achy, crampy. Modifying factors: The symptoms are alleviated by nothing, the symptoms are aggravated by nothing. The patient has not experienced similar symptoms in the past. 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 pylori; Stomach ulcer; ap3 - PSHx: 12:04 section; Cholecystectomy; ap3 - Immunization history:: Client reports receiving the 2nd dose of the Covid vaccine. - Social history:: Smoking status: Patient denies any tobacco usage or history of. ROS: 13:15 Constitutional: Negative for fever, chills, and weight loss, Cardiovascular: Negative jmm for chest pain, palpitations, and edema, Respiratory: Negative for shortness of breath, cough, wheezing, and pleuritic chest pain. 13:15 Abdomen/GI: Positive for abdominal pain, nausea and vomiting. 13:15 All other systems are negative. Exam: 13:15 Constitutional: This is a well developed, well nourished patient who is awake, alert, jmm and in no acute distress. Head/Face: atraumatic. Eyes: EOMI, no conjunctival erythema appreciated ENT: Moist Mucus Membranes Neck: Trachea midline, Supple Chest/axilla: Normal chest wall appearance and motion. Cardiovascular: Regular rate and rhythm. No edema appreciated Respiratory: Normal respirations, no respiratory distress appreciated Abdomen/GI: Non distended Back: Normal ROM Skin: General appearance color normal 13:15 Musculoskeletal/extremity: ROM: intact in all extremities. 13:15 Skin: Appearance: Color: normal in color. 13:15 Neuro: Orientation: is normal, Mentation: is normal, Memory: is normal. 13:15 Psych: Behavior/mood is pleasant, cooperative. 13:15 Abdomen/GI: Inspection: abdomen appears normal, Bowel sounds: normal, Palpation: soft, jmm moderate abdominal tenderness, in the left upper quadrant and left lower quadrant. 13:15 MS/ Extremity: Moves all extremities, no obvious deformities appreciated, no edema jmm noted to the lower extremities Neuro: Awake and alert Psych: Behavior is normal, Mood is normal, Patient is cooperative and pleasant Vital Signs: 12:03 BP 117 / 95; Pulse 56; Resp 17; Pulse Ox 97% ; Weight 58.97 kg; Height 5 ft. (152.40 ap3 cm); Pain 8/10; 12:06 Temp 97.1; ap3 16:03 BP 120 / 84; Pulse 62; Resp 16; Pulse Ox 98% ; jh5 12:03 Body Mass Index 25.39 (58.97 kg, 152.40 cm) ap3 MDM: 13:15 Patient medically screened. [facility] 16:56 Data reviewed: vital signs, nurses notes. Counseling: I had a detailed discussion with sarah beth the patient and/or guardian regarding: the historical points, exam findings, and any diagnostic results supporting the discharge/admit diagnosis, the need for outpatient follow up, to return to the emergency department if symptoms worsen or persist or if there are any questions or concerns that arise at home. 11/02 13:16 Order name: CBC with Diff; Complete Time: 14:20 [facility] 11/02 13:16 Order name: CMP; Complete Time: 13:57 [facility] 11/02 13:16 Order name: Lipase; Complete Time: 13:57 [facility] 11/02 13:47 Order name: Urine Dipstick-Ancillary; Complete Time: 13:47 [facility] 11/02 13:48 Order name: Urine --Ancillary (enter results); Complete Time: 14:10 11/02 14:18 Order name: CBC Smear Scan; Complete Time: 14:20 [facility] 11/02 13:16 Order name: IV Saline Lock; Complete Time: 13:26 [facility] 11/02 13:16 Order name: Labs collected and sent; Complete Time: 13:26 [facility] 11/02 13:19 Order name: CT Abd/Pelvis - IV Contrast Only; Complete Time: 15:06 [facility] 11/02 13:16 Order name: Urine Dipstick-Ancillary (obtain specimen); Complete Time: 13:48 [facility] 11/02 13:16 Order name: Urine Test (obtain specimen); Complete Time: 13:48 [facility] Administered Medications: 13:51 Drug: NS 0.9% 1000 ml Route: IV; Rate: 1 bolus; Site: right antecubital; [facility] 13:51 Drug: Ativan (LORazepam) 1 mg Route: IVP; Site: right antecubital; [facility] 13:51 Drug: Reglan (metoCLOPramide) 20 mg Route: IVP; Site: right antecubital; [facility] 13:51 Drug: diphenhydrAMINE 12.5 mg Route: IVP; Site: right antecubital; [facility] 13:51 Drug: Pepcid (famotidine) 20 mg Route: IVP; Site: right antecubital; [facility] Disposition: 17:57 Co-signature as Attending Physician, Stanley Naidu MD I agree with the assessment and kdr plan of care. Disposition Summary: 11/02/21 17:11 Discharge Ordered Location: Home [facility] Condition: Stable [facility] Diagnosis - Abdominal pain, unspecified [facility] - Vomiting [facility] Followup: [facility] - With: Private Physician - When: 2 - 3 days - Reason: Recheck today's complaints, Continuance of care, Re-evaluation by your physician Discharge Instructions: - Discharge Summary Sheet [facility] - Abdominal Pain, Adult jm - Vomiting, Adult [facility] Forms: - Medication Reconciliation Form [facility] - Thank You Letter [facility] - Antibiotic Education [facility] - Prescription Opioid Use [facility] Prescriptions: - ondansetron 4 mg Oral tablet,disintegrating - take 1 tablet by ORAL route every 4-6 hours As needed; 20 tablet; Refills: 0, [facility] Product Selection Permitted - Pepcid 20 mg Oral Tablet - take 1 tablet by ORAL route once daily; 20 tablet; Refills: 0, Product [facility] Selection Permitted Signatures: Dispatcher [employer] Stanley Woods MD MD kdr Mickail, Joel, PA PA [facility] Annabelle Justice RN RN ap3 Nicole Key RN RN jh5
[2021-11-02 18:35] VITALS: TEMP 97.1
[2021-11-02 18:38] VITALS: BP 120/84; O2SAT 98
== END 2021-11-02 17:27 | disposition home or self-care (01) ==
LOC: ER 11:22
DX: R10.9 Unspecified abdominal pain (principal); R11.10 Vomiting, unspecified
CPT/HCPCS: 85025; 36415; 81025; 81003; 83690; 80053; 74177; Q9967; J2765; J1200; J7030